=== PATIENT | male | born 1955 | race Caucasian/White ===

== ENCOUNTER 2020-04-12 11:43 | Inpatient (IN) | payer OTHER, SELFPAY ==
[2020-04-12] VITALS (8 sets, daily range): BP systolic 117–149; BP diastolic 65–77; PULSE 74–88; RESP 16–23; TEMP 36.6–37.8; O2SAT 87–97; BMI 27.1
--- NOTE | 2020-04-12 11:55 | XRR_ITS ---
PROCEDURE INFORMATION: Exam: XR Chest, 1 View Exam date and time: 04/12/2020 11:58 AM Age: 65 years old Clinical indication: Shortness of breath; Additional info: Nausea/diarrhea TECHNIQUE: Imaging protocol: XR of the chest Views: 1 view. COMPARISON: No relevant prior studies available. FINDINGS: Lungs: Bilateral patchy hazy interstitial pulmonary infiltrates are present. This could be due to a interstitial pneumonia possibly viral in nature. Pleural space: Unremarkable. No pleural effusion. No pneumothorax. Heart/Mediastinum: Unremarkable. No cardiomegaly. Bones/joints: Unremarkable. XR/XR chest 1V portable [id number] IMPRESSION: Bilateral hazy interstitial pulmonary infiltrates consistent with interstitial pneumonia possibly viral in nature.
--- NOTE | 2020-04-12 11:58 | ED_ITS ---
HPI - General Adult General: Chief complaint: Infusion Louie Stated complaint: GENERALIZED WEAKNESS/ N/V Time Seen by Provider: 04/12/20 11:45 Source: patient and EMS Mode of arrival: EMS Limitations: no limitations History of Present Illness: HPI narrative: Patient is a 65-year-old male with a history of diabetes mellitus who presents to the emergency department with na usea and vomiting and generalized weakness. The patient was recently admitted at a hospital in [facility] from 04/04/2020 to 04/10/2020 where he was managed as a case of DKA. While he was in the hospital he was also diagnosed with new onset A. fib. He was started on Eliquis but has not filled the prescription since he got home. Since to go home on the he has been feeling increasing weakness and now has nausea and diarrhea. No vomiting yet. He says he is too weak to even get out of bed. Because of the symptoms he was brought to the emergency department for evaluation MD complaint: generalized weakness Onset (ago): day(s) (3) Associated symptoms: Reports decreased appetite, malaise and nausea; Deny chest pain, confusion, cough, diaphoresis, dyspnea, fevers/chills, headache(s), rash, palpitations, seizures, short of breath, syncope, vomiting or weakness Review of Systems General: Reports: 10 or more systems reviewed and unremarkable except in HPI and below Const: Reports: fatigue and malaise; Denies: diaphoresis Eyes: Denies: change in vision or blurry vision ENMT: Denies: throat pain, enlarged tonsils, odynophagia, hoarseness, mouth pain or swelling of lips/tongue Card: Denies: chest pain, palpitations or syncope Resp: Denies: dyspnea GI: Reports: nausea and diarrhea; Denies: vomiting : Denies: flank pain, dysuria, urinary frequency, urinary urgency or urinary hesitancy Musc: Denies: neck pain, back pain or extremity swelling Skin/Breast: Denies: rash Neuro: Denies: headache(s) or confusion Endo: Denies: polyuria, polydipsia or tired all the time PFS ED PFSH: Medical History (Updated 04/12/20 @ 21:17 by Dakota Garces MD, [facility]) Atrial fibrillation Diabetes mellitus Hyperlipidemia Hypertension Surgical History (Updated 04/12/20 @ 15:52 by Deon Bruce MD) History of cholecystectomy Family History (Updated 04/12/20 @ 15:53 by Deon Bruce MD) Mother CAD (coronary artery disease) Father Old age Social History (Updated 04/12/20 @ 15:53 by Deon Bruce MD) Smoking and tobacco status: never smoked Alcohol intake: never Substance/Drug Use: never Physical Exam Const: COMMON NORMALS: no acute distress, average body habitus, patient oriented x3, no limitations, healthy appearing, alert and well nourished HENMT: COMMON NORMALS: normocephalic, atraumatic and moist oral mucous membranes HEAD & SCALP: normocephalic and atraumatic Neck/C-Spine: COMMON NORMALS: no meningeal signs and no JVD Resp: COMMON NORMALS: normal respiratory effort, No retractions, No use of accessory muscles, clear to auscultation bilaterally and percussion normal AUSCULTATION: clear to auscultation bilaterally PERCUSSION: percussion normal Cardio: COMMON NORMALS: no JVD, regular rate, regular rhythm, S1 normal heart sound present, S2 normal heart sound present, No gallops present (Cardio), No clicks present (Cardio), No murmurs present (Cardio), No rub (Cardio) and Peripheral pulses 2+ throughout RATE: regular rate RHYTHM: regular rhythm HEART SOUNDS: S1 normal heart sound present and S2 normal heart sound present PERIPHERAL PULSES: Peripheral pulses 2+ throughout GI: COMMON NORMALS: Normal to inspection, nondistended, normoactive bowel sounds present, Soft to palpation, non-tender, No hepatosplenomegaly present, no masses and no bruits PALPATION: Yes Soft to palpation and Yes No hepatosplenomegaly present : COMMON NORMALS: Yes no CVA tenderness BLADDER/KIDNEY EXAM: Yes no CVA tenderness Back/Pelvis: COMMON NORMALS: no CVA tenderness Extremity: COMMON NORMALS: normal to inspection, full ROM, capillary refill normal, no calf tenderness and no pedal edema Neuro: COMMON NORMALS: patient oriented x3 SENSORIUM/ORIENTATION: Yes alert MENINGEAL SIGNS: Yes no meningeal signs Skin: COMMON NORMALS: no rashes or lesions noted, no wounds, turgor normal, no jaundice, no petechiae and no mottling GENERAL SKIN EXAM: no rashes or lesions noted and turgor normal Course Reevaluation(s): Reevaluation #1: Discussed his lab and imaging findings with him. He is positive for COVID-19. Discussed monoclonal antibody infusion as he fits the criteria and he consented to receive the infusion. I had a conversation with a neighbor who is a nurse and she told me that the patient's is 75 years old, is pretty small and is unable to care for the patient at this time. The patient is extremely weak and fell while trying to go to the bathroom today. Because of these I do not think it is safe for the patient to be discharged home would like to admit him to the hospital. The patient voiced understanding and is in agreement with the plan Time: 14:50 Consultations: Consultation #1: Discussed the patient with Dr. Wellington, hospitalist. He kindly accepted the patient to his service. Time: 15:03 Vital Signs: Vital signs: Vital Signs Temperature 99.7 F H 04/12/20 19:57 Pulse Rate 88 04/12/20 19:57 Respiratory Rate 20 H 04/12/20 19:57 Blood Pressure 147/76 04/12/20 19:57 Pulse Oximetry 92 04/12/20 19:57 MDM - General Adult MDM Narrative: Medical decision making narrative: 65-year-old male who was recently discharged from a hospital in [place] after being admitted for DKA. Patient has been extremely weak for several days, is gotten to the point where he is unable to get out of bed. Evaluation here shows the patient is positive for COVID-19. He is not hypoxic and meets the criteria for monoclonal antibody infusion. The patient will be given an infusion of monoclonal antibody and admitted to the hospital for further evaluation and management. He was also noted to be hypokalemic and was given IV KCl in the ED. Medical Records: Attestation: I reviewed the patient's medical records. Lab Data: Attestation: I reviewed the patient's lab results. Labs: Lab Results 04/12/20 04/12/20 04/12/20 Range/Units 11:08 11:08 11:08 WBC 5.0 (4.0-10.0) 10^3/ uL RBC 4.18 (4.1-5.3) 10^6/u L Hgb 12.9 (11.7-16.6) g/dL Hct 38.1 L (42.0-52.0) % MCV 91.1 (80-94) fL MCH 30.9 (28.0-34.0) pg MCHC 33.9 (30.0-36.0) g/dL RDW 12.4 (12.1-15.1) % Plt Count 196 (130-400) 10^3/c mm MPV 10.6 H (7.4-10.4) fL Neut % (Auto) 67.4 % Lymph % (Auto) 19.2 % Lamar % (Auto) 12.2 % Eos % (Auto) 0.0 % Baso % (Auto) 0.2 % Neut # (Auto) 3.38 (1.8-7.7) 10^3/u L Lymph # (Auto) 1.0 (0.8-4.8) 10^3/u L Lamar # (Auto) 0.6 (0.2-0.9) 10^3/u L Eos # (Auto) 0.0 (0.0-0.8) 10^3/u L Baso # (Auto) 0.0 (0.0-0.1) 10^3/u L Nucleated RBC % (a uto) 0 % Nucleated RBCs # 0.0 /100WBC PT 13.90 (12.1-14.9) SECO NDS INR 1.04 (0.8-1.2) Sodium 135 L (136-145) mmol/L Potassium 2.9 L (3.5-5.1) mmol/L Chloride 94 L (98-107) mmol/L Carbon Dioxide 29 (22-29) mmol/L Anion Gap 14.9 (5-19) BUN 10 (8-23) mg/dL Creatinine 0.7 (0.7-1.2) mg/dL GFR Calculation 113.5 (90-130) mL/min Glucose 174 H (65-115) mg/dL Calculated Osmolal ity 283 L (285-295) mOsm/k g Lactate (0.5-2.2) mmol/L Calcium 7.8 L (8.5-10.5) mg/dL Magnesium 1.9 (1.7-2.3) mg/dL Total Bilirubin 0.4 (0.15-1.2) mg/dL AST 32 (0-40) U/L ALT 17 (0-41) U/L Alkaline Phosphata se 49 (40-130) IU/L Creatine Kinase 141 (39-308) U/L Troponin T Baselin e (0-15) ng/L Troponin T 120 Min port gamble (0-15) ng/L Delta Troponin T (0-10) ABS# C-Reactive Protein 62.4 H (0.0-4.9) mg/L NT-Pro-B Natriuret Pep 193 H (0-125) pg/mL Total Protein 5.9 L (6.6-8.7) g/dL Albumin 2.8 L (3.5-5.2) g/dL Globulin 3.1 (1.3-4.6) g/dL Lipase 53 (13-60) U/L Procalcitonin 0.30 (0-0.5) ng/mL Urine Color (Yellow) Urine Appearance (CLEAR) Urine pH (5-7) Ur Specific Gravit y (1.005-1.030) Urine Protein (Negative) Urine Glucose (UA) (Normal) Urine Ketones (Negative) Urine Blood (Negative) Urine Nitrate (Negative) Urine Bilirubin (Negative) Urine Urobilinogen (Negative) mg/dL Ur Leukocyte Crystal ase (Negative) Urine RBC (0-2) /hpf Urine WBC (0-5) /hpf Ur Squamous Epith Cells (0-5) /hpf Amorphous Sediment Urine Bacteria (NONE) /hpf Coarse Granular Ca sts /lpf Urine Mucus /hpf Serum Ketones (Negative) SARS-CoV-2 Ag (Rap id) (Negative) 04/12/20 04/12/20 04/12/20 Range/Units 11:08 11:08 13:02 WBC (4.0-10.0) 10^3/ uL RBC (4.1-5.3) 10^6/u L Hgb (11.7-16.6) g/dL Hct (42.0-52.0) % MCV (80-94) fL MCH (28.0-34.0) pg MCHC (30.0-36.0) g/dL RDW (12.1-15.1) % Plt Count (130-400) 10^3/c mm MPV (7.4-10.4) fL Neut % (Auto) % Lymph % (Auto) % Lamar % (Auto) % Eos % (Auto) % Baso % (Auto) % Neut # (Auto) (1.8-7.7) 10^3/u L Lymph # (Auto) (0.8-4.8) 10^3/u L Lamar # (Auto) (0.2-0.9) 10^3/u L Eos # (Auto) (0.0-0.8) 10^3/u L Baso # (Auto) (0.0-0.1) 10^3/u L Nucleated RBC % (a uto) % Nucleated RBCs # /100WBC PT (12.1-14.9) SECO NDS INR (0.8-1.2) Sodium (136-145) mmol/L Potassium (3.5-5.1) mmol/L Chloride (98-107) mmol/L Carbon Dioxide (22-29) mmol/L Anion Gap (5-19) BUN (8-23) mg/dL Creatinine (0.7-1.2) mg/dL GFR Calculation (90-130) mL/min Glucose (65-115) mg/dL Calculated Osmolal ity (285-295) mOsm/k g Lactate 1.2 (0.5-2.2) mmol/L Calcium (8.5-10.5) mg/dL Magnesium (1.7-2.3) mg/dL Total Bilirubin (0.15-1.2) mg/dL AST (0-40) U/L ALT (0-41) U/L Alkaline Phosphata se (40-130) IU/L Creatine Kinase (39-308) U/L Troponin T Baselin e 30 H (0-15) ng/L Troponin T 120 Min port gamble (0-15) ng/L Delta Troponin T (0-10) ABS# C-Reactive Protein (0.0-4.9) mg/L NT-Pro-B Natriuret Pep (0-125) pg/mL Total Protein (6.6-8.7) g/dL Albumin (3.5-5.2) g/dL Globulin (1.3-4.6) g/dL Lipase (13-60) U/L Procalcitonin (0-0.5) ng/mL Urine Color (Yellow) Urine Appearance (CLEAR) Urine pH (5-7) Ur Specific Gravit y (1.005-1.030) Urine Protein (Negative) Urine Glucose (UA) (Normal) Urine Ketones (Negative) Urine Blood (Negative) Urine Nitrate (Negative) Urine Bilirubin (Negative) Urine Urobilinogen (Negative) mg/dL Ur Leukocyte Crystal ase (Negative) Urine RBC (0-2) /hpf Urine WBC (0-5) /hpf Ur Squamous Epith Cells (0-5) /hpf Amorphous Sediment Urine Bacteria (NONE) /hpf Coarse Granular Ca sts /lpf Urine Mucus /hpf Serum Ketones Positive H (Negative) SARS-CoV-2 Ag (Rap id) (Negative) 04/12/20 04/12/20 04/12/20 Range/Units 13:02 13:15 13:15 WBC (4.0-10.0) 10^3/ uL RBC (4.1-5.3) 10^6/u L Hgb (11.7-16.6) g/dL Hct (42.0-52.0) % MCV (80-94) fL MCH (28.0-34.0) pg MCHC (30.0-36.0) g/dL RDW (12.1-15.1) % Plt Count (130-400) 10^3/c mm MPV (7.4-10.4) fL Neut % (Auto) % Lymph % (Auto) % Lamar % (Auto) % Eos % (Auto) % Baso % (Auto) % Neut # (Auto) (1.8-7.7) 10^3/u L Lymph # (Auto) (0.8-4.8) 10^3/u L Lamar # (Auto) (0.2-0.9) 10^3/u L Eos # (Auto) (0.0-0.8) 10^3/u L Baso # (Auto) (0.0-0.1) 10^3/u L Nucleated RBC % (a uto) % Nucleated RBCs # /100WBC PT (12.1-14.9) SECO NDS INR (0.8-1.2) Sodium (136-145) mmol/L Potassium (3.5-5.1) mmol/L Chloride (98-107) mmol/L Carbon Dioxide (22-29) mmol/L Anion Gap (5-19) BUN (8-23) mg/dL Creatinine (0.7-1.2) mg/dL GFR Calculation (90-130) mL/min Glucose (65-115) mg/dL Calculated Osmolal ity (285-295) mOsm/k g Lactate (0.5-2.2) mmol/L Calcium (8.5-10.5) mg/dL Magnesium (1.7-2.3) mg/dL Total Bilirubin (0.15-1.2) mg/dL AST (0-40) U/L ALT (0-41) U/L Alkaline Phosphata se (40-130) IU/L Creatine Kinase (39-308) U/L Troponin T Baselin e (0-15) ng/L Troponin T 120 Min port gamble 27.01 H (0-15) ng/L Delta Troponin T -2.99 L (0-10) ABS# C-Reactive Protein (0.0-4.9) mg/L NT-Pro-B Natriuret Pep (0-125) pg/mL Total Protein (6.6-8.7) g/dL Albumin (3.5-5.2) g/dL Globulin (1.3-4.6) g/dL Lipase (13-60) U/L Procalcitonin (0-0.5) ng/mL Urine Color Yellow (Yellow) Urine Appearance Clear (CLEAR) Urine pH 5 (5-7) Ur Specific Gravit y 1.020 (1.005-1.030) Urine Protein 1+ H (Negative) Urine Glucose (UA) 2+ (Normal) Urine Ketones 2+ H (Negative) Urine Blood 2+ H (Negative) Urine Nitrate Negative (Negative) Urine Bilirubin Neg (Negative) Urine Urobilinogen Norm (Negative) mg/dL Ur Leukocyte Crystal ase Negative (Negative) Urine RBC 0-4 H (0-2) /hpf Urine WBC 5-10 H (0-5) /hpf Ur Squamous Epith Cells None (0-5) /hpf Amorphous Sediment Not Reportable Urine Bacteria 1+ H (NONE) /hpf Coarse Granular Ca sts 5-10 H /lpf Urine Mucus 1+ /hpf Serum Ketones (Negative) SARS-CoV-2 Ag (Rap id) Positive H (Negative) Imaging Data^: CXR: Radiologist's impression: [facility] [address] [place] [address] XRay Report Signed Patient: Dallin Agosto #: [id number] : 6Acct#:[id number] Age/Sex: 65 / MADM Date: 04/12/20 Loc: ERRoom/Bed: Attending Dr: Ordering Provider/Ordering MD: Dakota Garces MD, [facility] Date of Service: 04/12/20 Procedure(s): XR chest 1V portable [id number] Accession Number(s): [id number] Report Number: [id number] PROCEDURE INFORMATION: Exam: XR Chest, 1 View Exam date and time: 04/12/2020 11:58 AM Age: 65 years old Clinical indication: Shortness of breath; Additional info: Nausea/diarrhea TECHNIQUE: Imaging protocol: XR of the chest Views: 1 view. COMPARISON: No relevant prior studies available. FINDINGS: Lungs: Bilateral patchy hazy interstitial pulmonary infiltrates are present. This could be due to a interstitial pneumonia possibly viral in nature. Pleural space: Unremarkable. No pleural effusion. No pneumothorax. Heart/Mediastinum: Unremarkable. No cardiomegaly. Bones/joints: Unremarkable. XR/XR chest 1V portable [id number] IMPRESSION: Bilateral hazy interstitial pulmonary infiltrates consistent with interstitial pneumonia possibly viral in nature. Dictated By:William Boyer Signed By:Zohreh Boyer Date/Time:04/12/20 1301 DD/ 1300 EKG Data^: EKG 1: Attestation: I personally reviewed and interpreted this EKG as follows: EKG interpretation date: 04/12/20 EKG interpretation time: 12:48 Prior EKG tracings: not available for review Interpretation: Atrial fibrillation. Heart rate [address] Computer generated interpretation: Chest X-Ray 04/12/20 11:55 IMPRESSION: Bilateral hazy interstitial pulmonary infiltrates consistent with interstitial pneumonia possibly viral in nature. EKG 2: Attestation: I personally reviewed and interpreted this EKG as follows: EKG interpretation date: 04/12/20 EKG interpretation time: 14:22 Prior EKG tracings: available for review Interpretation: Atrial fibrillation. Heart rate [address] changes. Poor EKG Computer generated interpretation: Chest X-Ray 04/12/20 11:55 IMPRESSION: Bilateral hazy interstitial pulmonary infiltrates consistent with interstitial pneumonia possibly viral in nature. Discharge Plan Discharge Patient Disposition: Admitted As Inpatient Admit Provider: Deon Bruce Clinical Impression: COVID-19, Hypokalemia Atrial fibrillation Qualifiers: Atrial fibrillation type: unspecified Qualified Code(s): I48.91 - Unspecified atrial fibrillation Diabetes mellitus Qualifiers: Diabetes mellitus type: type 2 Diabetes mellitus [facility] insulin use: with ingot supervisor use Diabetes mellitus complication status: without complication Q ualified Code(s): E11.9 - Type 2 diabetes mellitus without complications Condition: Stable Coding Level of Care Code ED Paper Tube Cutter for Chg Fwd Exam Comprehensive
--- NOTE | 2020-04-12 12:00 | ECG_ITS ---
[facility] Test Date: 2020-04-12 Pat Name: Gustavo Agosto Department: Room: Gender: Male Hose Tender: : 1955 Requested By: Dakota Garces I Order Number: [id number] Mitzy MD: Nayana Phillips M.D. Measurements Intervals [place] Rate: 68 P: WA: QRS: -11 QRSD: 99 T: 5 QT: 395 QTc: 422 Interpretive Statements ATRIAL FIBRILLATION ABNORMAL RHYTHM ECG No previous ECG available for comparison Electronically Signed On 04-13-2020 9:17:36 ADVANCED MANUFACTURING TECHNICIAN by Nayana Phillips M.D. [id number]
[2020-04-12 12:06] LABS: Basophils % 0.2 %; Hematocrit 38.1 % (42.0-52.0); Hemoglobin 12.9 g/dL (11.7-16.6); Lymphocytes % 19.2 %; Mean Corpuscular HGB Conc 33.9 g/dL (30.0-36.0); Mean Corpuscular Hemoglobin 30.9 pg (28.0-34.0); Mean Corpuscular Volume 91.1 fL (80-94); Mean Platelet Volume 10.6 fL (7.4-10.4); Monocytes # 0.6 10^3/uL (0.2-0.9); Monocytes % 12.2 %; Neutrophils # 3.38 10^3/uL (1.8-7.7); Neutrophils % 67.4 %; Nucleated Red Blood Cells % 0 %; Platelet Count 196 10^3/cmm (130-400); Red Blood Count 4.18 10^6/uL (4.1-5.3); Red Cell Distribution Width 12.4 % (12.1-15.1)
[2020-04-12 12:14] LABS: INR 1.04 (0.8-1.2)
[2020-04-12 12:31] LABS: Ketone (Acetest) Serum Positive (Negative)
[2020-04-12 12:34] LABS: NT Pro B Type Natriuretic Pept 193 pg/mL (0-125)
[2020-04-12 12:46] LABS: Alanine Aminotransferase 17 U/L (0-41); Albumin Level 2.8 g/dL (3.5-5.2); Alkaline Phosphatase 49 IU/L (40-130); Anion Gap 14.9 (5-19); Aspartate Amino Transferase 32 U/L (0-40); Blood Urea Nitrogen 10 mg/dL (8-23); C Reactive Protein 62.4 mg/L (0.0-4.9); Calcium 7.8 mg/dL (8.5-10.5); Carbon Dioxide 29 mmol/L (22-29); Chloride 94 mmol/L (98-107); Creatine Phosphokinase 141 U/L (39-308); Globulin 3.1 g/dL (1.3-4.6); Glomerular Filtration Rate 113.5 mL/min (90-130); Glucose 174 mg/dL (65-115); Lipase 53 U/L (13-60); Magnesium 1.9 mg/dL (1.7-2.3); Osmolality Calculated 283 mOsm/kg (285-295); Sodium 135 mmol/L (136-145); Total Bilirubin 0.4 mg/dL (0.15-1.2); Total Protein 5.9 g/dL (6.6-8.7)
[2020-04-12 12:58] LABS: Slide Review Slide Review Perform
[2020-04-12 13:02] LABS: Potassium 2.9 mmol/L (3.5-5.1)
[2020-04-12 13:16] LABS: Troponin(5th) Baseline 30 ng/L (0-15)
[2020-04-12 13:41] LABS: Lactate (Lactic Acid level) 1.2 mmol/L (0.5-2.2)
[2020-04-12 13:43] LABS: Troponin 5 2HR 27.01 ng/L (0-15)
[2020-04-12 13:49] LABS: Troponin 5 2HR Delta -2.99 ABS# (0-10)
[2020-04-12 13:53] LABS: SARS Covid-2 Antigen Positive (Negative)
--- NOTE | 2020-04-12 14:00 | ECG_ITS ---
[facility] Test Date: 2020-04-12 Pat Name: Gustavo Agosto Department: Room: Gender: Male Social Economist: : 1955 Requested By: Dakota Garces I Order Number: [id number] Mitzy MD: Nayana Phillips M.D. Measurements Intervals [place] Rate: 73 P: -79 CO: 132 QRS: -4 QRSD: 94 T: -20 QT: 390 QTc: 432 Interpretive Statements Possible multifocal atrial rhythm with PVCs POSSIBLE INFERIOR MYOCARDIAL INFARCTION , PROBABLY OLD [30 ms Q WAVE IN II/aVF] ABNORMAL RHYTHM ECG Compared to ECG 04/12/2020 12:48:04 Ventricular premature complex(es) now present Myocardial infarct finding now present Atrial fibrillation no longer present Electronically Signed On 04-13-2020 20:29:27 ROLE PLAYER by Nayana Phillips M.D. [id number]
[2020-04-12 14:14] LABS: Add Urine Microscopic? YES; Bilirubin Urine Neg (Negative); Blood Urine 2+ (Negative); Glucose Urine UA 2+ (Normal); Ketones Urine 2+ (Negative); Leukocyte Esterase Urine Negative (Negative); Nitrate Urine Negative (Negative); Protein Urine 1+ (Negative); RBC Urine 0-4 /hpf (0-2); Urine Appearance Clear (CLEAR); Urine Color Yellow (Yellow); Urobilinogen Urine Norm (Negative); pH Urine 5 (5-7)
[2020-04-12 14:15] LABS: Add Urine Culture? No; Bacteria Urine 1+ /hpf; Mucus Urine 1+ /hpf
[2020-04-12] MEDS: sodium chloride 0.9% 1,000 ML 999 ML IV (14:28)
[2020-04-12] MEDS: potassium chloride premix 100 ML 50 MEQ IV (14:28)
--- NOTE | 2020-04-12 15:50 | P.HP_ITS ---
Providers/Chief Complaint Chief Complaint: GENERALIZED WEAKNESS/ N/V History of Present Illness Gustavo Agosto is a 65 year old male with a past medical history insulin-dependent type 2 diabetes mellitus, hypertension, hyperlipidemia, recent diagnosis of atrial fibrillation, recent admission in [facility] for diabetic ketoacidosis, had a 6-day ICU admission, discharged on the eighth, he tested negative for Covid on the eighth, patient got home, he was not feeling well, fatigue, malaise, nausea, vomiting, lightheadedness, dizziness, inability to ambulate due to generalized weakness. Patient denies shortness of breath, denies chest pain, patient did not require any oxygen, no history of COPD, history of asthma, no history of CAD, no history of strokes, no history of CHF, history of CKD. Review of Systems Const: Reports: chills and fatigue; Denies: fever(s) or malaise Eyes: Denies: change in vision or blurry vision ENMT: Denies: nasal congestion Card: Reports: pre-syncope; Denies: chest pain, palpitations or edema Resp: Denies: dyspnea, productive cough, non-productive cough or wheezing GI: Reports: nausea and vomiting; Denies: abdominal pain, hematemesis, diarrhea, constipation, hematochezia or melena : Denies: flank pain, difficulty urinating, dysuria or urinary frequency Musc: Denies: neck pain or back pain Skin/Breast: Denies: rash Neuro: Denies: headache(s), dizziness or vertigo Psych: Denies: anxiety or depression Endo: Denies: polyuria or polydipsia Medications/Allergies Home Medications Medication Instructions Recorded Confirmed Last Taken Type aspirin 325 mg PO DAILY@0900 04/12/20 04/12/20 04/11/20 History atorvastatin 10 mg PO DAILY@2200 04/12/20 04/12/20 04/11/20 History dextrose [Glucose Bits] See Rx Instructions .ROUTE .COMPLEX 04/12/20 04/12/20 Unknown History dulaglutide [Trulicity] See Rx Instructions .ROUTE .COMPLEX 04/12/20 04/12/20 Unknown History empagliflozin 25 mg PO DAILY@0900 04/12/20 04/12/20 04/11/20 History insulin aspart U-100 [Novolog 17 unit SUBCUT DAILY@0900 04/12/20 04/12/20 Unknown History Flexpen U-100 Insulin] insulin glargine [Lantus Solostar See Rx Instructions .ROUTE .COMPLEX 04/12/20 04/12/20 Unknown History U-100 Insulin] metformin 1,000 mg PO BID@0900,1800 04/12/20 04/12/20 04/11/20 History metoprolol tartrate 25 mg PO DAILY@0900 04/12/20 04/12/20 04/11/20 History Allergies Allergy/AdvReac Type Severity Reaction Status Date / Time procaine [From Novocain] Allergy ALGY-Hives Verified 04/12/20 11:54 PFSH Acute PFSH: Medical History (Updated 04/12/20 @ 15:55 by Deon Bruce MD) Atrial fibrillation Diabetes mellitus Hyperlipidemia Hypertension Surgical History (Updated 04/12/20 @ 15:52 by Deon Bruce MD) History of cholecystectomy Family History (Updated 04/12/20 @ 15:53 by Deon Bruce MD) Mother CAD (coronary artery disease) Father Old age Social History (Updated 04/12/20 @ 15:53 by Deon Bruce MD) Smoking and tobacco status: never smoked Alcohol intake: never Substance/Drug Use: never Vitals/I&O/Wt Last Vital Signs Temp 97.9 F 04/12/20 11:48 Pulse 77 04/12/20 14:45 Resp 21 H 04/12/20 14:45 BP 130/65 04/12/20 14:45 Pulse Ox 93 04/12/20 14:45 Weight last 48 hrs Weight 99.79 kg Physical Exam Const: COMMON NORMALS: no acute distress and patient oriented x3 GENERAL APPEARANCE: cooperative and comfortable HENMT: COMMON NORMALS: normocephalic HEAD & SCALP: normocephalic Eye: COMMON NORMALS: Equal, round and reactive pupils present and EOMs intact bilaterally GENERAL EYE: appearance normal, both eyes and all related structu res PUPIL: Yes Equal, round and reactive pupils present Neck/C-Spine: COMMON NORMALS: full ROM, no lymphadenopathy, no JVD and Thyroid normal THYROID: Thyroid normal Lymph: LYMPHATIC: no lymphadenopathy noted Resp: COMMON NORMALS: normal respiratory effort, No retractions, No use of accessory muscles and clear to auscultation bilaterally AUSCULTATION: clear to auscultation bilaterally Cardio: COMMON NORMALS: no JVD, regular rate, regular rhythm, S1 normal heart sound present, S2 normal heart sound present, No gallops present (Cardio), No clicks present (Cardio) and No murmurs present (Cardio) RATE: regular rate RHYTHM: regular rhythm HEART SOUNDS: S1 normal heart sound present and S2 normal heart sound present GI: COMMON NORMALS: Normal to inspection, nondistended, normoactive bowel sounds present, Soft to palpation, non-tender and No hepatosplenomegaly present PALPATION: Yes Soft to palpation and Yes No hepatosplenomegaly present Extremity: COMMON NORMALS: normal to inspection, full ROM and no pedal edema Neuro: COMMON NORMALS: patient oriented x3, CN's II-XII intact bilaterally, moves all extremities and no focal motor deficits Psych: COMMON NORMALS: mental status grossly normal, Normal thought process present and cooperative THOUGHT PROCESS: Normal thought process present Data : 04/12/20 11:08 04/12/20 11:08 A&P Assessment and plan (1) COVID-19: -Associate with fatigue, malaise, dehydration -No shortness of breath, no chest pain, no oxygen requirements -Receiving bam infusion -Continue IV hydration -Continue Rocephin for UTI Status: Acute (2) Hyperlipidemia: Continue statin Status: Acute (3) Hypertension: Continue metoprolol Status: Acute (4) Atrial fibrillation: Continue metoprolol, Eliquis Status: Acute (5) Diabetes mellitus: Insulin sliding scale 34 units of Lantus at night, switch to 10 units nightly for now as he has poor appetite Status: Acute (6) Hypokalemia: Will receive IV replacement Status: Acute Attestations Medical Necessity Statement*: Patient requires hospitalization, outpatient with observation, for COVID-19 infection, dehydration, hypokalemia, UTI Coding Level of Care Code Acute Network Systems Integrator for [facility] Diagnoses COVID-19 U07.1 Hyperlipidemia E78.5 Hypertension I10 Atrial fibrillation I48.91 Diabetes mellitus E11.9 Hypokalemia E87.6
[2020-04-12] MEDS: dextrose 5%-sod chloride 0.9% 1,000 ML 100 ML IV (18:10)
[2020-04-12] MEDS: famotidine 20 mg Tablet PO (18:10)
[2020-04-12] MEDS: insulin glargine 100 units/1 mL 15 UNIT SUBCUT (18:10)
[2020-04-12] MEDS: apixaban 5 mg Tablet PO (18:10)
[2020-04-12] MEDS: cefTRIAXone 1,000 MG in sodium chloride 0.9% (plus) 50 ML 100 MG IV (18:12)
[2020-04-12 18:33] LABS: Glucose Point of Care 180 mg/dL (70-110)
[2020-04-12 21:08] LABS: Glucose Point of Care 256 mg/dL (70-110)
[2020-04-12] MEDS: atorvastatin 40 mg Tablet 20 MG PO (21:31)
[2020-04-12] MEDS: ondansetron 2 mg/ML SDV 2 mL 4 MG IVP (21:43)
[2020-04-12 22:27] LABS: Troponin 5 6HR 44.69 ng/L (0-15)
[2020-04-12 22:33] LABS: Troponin 5 6HR Delta 14.69 ng/L (0-12)
[2020-04-13] VITALS (10 sets, daily range): BP systolic 104–124; BP diastolic 59–71; PULSE 64–90; RESP 17–24; TEMP 36.4–38.2; O2SAT 91–97
[2020-04-13] MEDS: dextrose 5%-sod chloride 0.9% 1,000 ML 100 ML IV ×2 (04:34→15:18)
[2020-04-13 06:51] LABS: Estmated Average Glucose 229; Hemoglobin A1C 9.6 % (4.0-6.0)
[2020-04-13 06:58] LABS: Thyroid Stimulating Hormone 0.93 uIU/mL (0.27-4.20)
[2020-04-13 07:13] LABS: Glucose Point of Care 197 mg/dL (70-110)
[2020-04-13] MEDS: famotidine 20 mg Tablet PO ×2 (08:32→17:51)
[2020-04-13] MEDS: apixaban 5 mg Tablet PO ×2 (08:32→17:51)
[2020-04-13] MEDS: aspirin 81 mg EC Tablet PO (08:32)
[2020-04-13] MEDS: metoprolol tartrate 25 mg Tablet PO (08:32)
--- NOTE | 2020-04-13 08:54 | USCV_ITS ---
Surendra Gustavo Age: 65 Gender: M : 1955 Exam Date: 04/13/2020 09:42 Ordering Phys: Deon Bruce MD Technologist: Rosa Oscar Exam Location: [facility] [place] Indication: Elevated troponin BP: 118 / 67 HR: 76 Rhythm: Sinus Technical Quality: Fair MEASUREMENTS (Male / Female) Normal Values 2D ECHO LV Diastolic Diameter PLAX 3.0 cm 4.2 - 5.9 / 3.9 - 5.3 cm LV Systolic Diameter PLAX 2.6 cm LV Chamber Size 3.7 cm IVS Diastolic Thickness 1.9 cm 0.6 - 1.0 / 0.6 - 0.9 cm IVS Systolic Thickness 2.0 cm LVPW Diastolic Thickness 1.2 cm 0.6 - 1.0 / 0.6 - 0.9 cm LVPW Systolic Thickness 1.6 cm RV Chamber Size 3.5 cm LVOT Diameter 2.1 cm LV Ejection Fraction 2D Teich 26.9 % LV Ejection Fraction MOD 2C 66.4 % LV Ejection Fraction 2C AL 65.5 % LA Diameter 3.0 cm LA Width 3.5 cm LA Height 5.1 cm RA Width 3.2 cm RA Height 4.4 cm Aorta at Sinotubular Diameter 2.8 cm M-MODE LV Diastolic Diameter MM 4.4 cm 4.2 - 5.9 / 3.9 - 5.3 cm LV Systolic Diameter MM 3.4 cm LV Ejection Fraction MM Teich 45.5 % IVS Diastolic Thickness MM 1.5 cm 0.6 - 1.0 / 0.6 - 0.9 cm IVS Systolic Thickness MM 1.7 cm LVPW Diastolic Thickness MM 1.4 cm 0.6 - 1.0 / 0.6 - 0.9 cm LVPW Systolic Thickness MM 1.6 cm Aortic Annulus Diameter 4.1 cm LA Ao Ratio MM 0.8 MV E Point Septal Separation 1.3 cm DOPPLER AV Peak Velocity 140.3 cm/s LVOT Peak Velocity 87.0 cm/s AV Area Cont Eq vti 2.4 cm squared AV Area Cont Eq pk 2.2 cm squared MV Area PHT 2.9 cm squared Mitral E to A Ratio 0.8 MV E' Velocity 30.5 cm/s Mitral E to MV E' Ratio 4.7 Mitral E to LV E' Lateral Ratio 4.1 Mitral E to LV E' Septal Ratio 5.5 TV Peak E Velocity 83.0 cm/s Right Atrial Pressure 3.0 mmHg PV Peak Velocity 77.0 cm/s RV Acceleration Time 0.1 s RV Ejection Time 0.3 s RV AcT/ET 0.4 FINDINGS Left Ventricle Normal left ventricular size and systolic function, EF 66 %. Mild left ventricular hypertrophy. No regional wall motion abnormalities. Right Ventricle The right ventricle is normal in size and function. Right Atrium The right atrium is normal in size. Left Atrium The left atrium is normal in size. Mitral Valve Thickened mitral valve. Aortic Valve Thickened aortic valve. Mild aortic valve regurgitation. Tricuspid Valve Trace to mild tricuspid valve regurgitation. Pulmonic Valve No gross abnormalities noted Pericardium Normal pericardium without effusion. Aorta Normal ascending aorta dimension. CONCLUSIONS Normal left ventricular size and systolic function, EF 66 %. Mild left ventricular hypertrophy. No regional wall motion abnormalities. Minimally thickened aortic and mitral valves. Mild aortic valve regurgitation. There is no pericardial effusion. There are no intracardiac masses. No previous study is available for comparison. Dr Nayana Phillips MD FAC (Electronically Signed) Final Date: 13 April 2020 13:29 S
[2020-04-13] MEDS: potassium chloride ER 20 mEq Tablet 40 MEQ PO (09:45)
[2020-04-13] MEDS: insulin glargine 100 units/1 mL 15 UNIT SUBCUT ×2 (09:45→22:29)
--- NOTE | 2020-04-13 10:44 | P.PN_ITS ---
Vitals/I&O/Wt Last Vital Signs Temp 97.8 F 04/13/20 08:00 Pulse 73 04/13/20 08:51 Resp 17 04/13/20 08:51 BP 118/67 04/13/20 08:00 Pulse Ox 93 04/13/20 08:51 04/12/20 04/13/20 04/13/20 22:59 06:59 14:59 Intake Total 1100 / 1100 1780 / 2880 120 / 120 Output Total 240 / 240 720 / 960 Balance 860 / 860 1060 / 1920 120 / 120 Weight last 48 hrs Weight 99.79 kg Physical Exam Const: COMMON NORMALS: no acute distress and patient oriented x3 HENMT: COMMON NORMALS: normocephalic HEAD & SCALP: normocephalic Neck/C-Spine: COMMON NORMALS: no JVD Resp: COMMON NORMALS: normal respiratory effort, No retractions, No use of accessory muscles and clear to auscultation bilaterally AUSCULTATION: clear to auscultation bilaterally Cardio: COMMON NORMALS: no JVD, regular rate, regular rhythm, S1 normal heart sound present and S2 normal heart sound present RATE: regular rate RHYTHM: regular rhythm HEART SOUNDS: S1 normal heart sound present and S2 normal heart sound present GI: COMMON NORMALS: Normal to inspection, nondistended, normoactive bowel sounds present, Soft to palpation, non-tender, No hepatosplenomegaly present, no masses and no bruits PALPATION: Yes Soft to palpation and Yes No hepatosplenomegaly present Extremity: COMMON NORMALS: capillary refill normal, no clubbing, cyanosis or edema, no calf tenderness and no pedal edema Neuro: COMMON NORMALS: patient oriented x3 Psych: COMMON NORMALS: mental status grossly normal Data : 04/12/20 11:08 04/12/20 11:08 A&P Assessment and plan (1) Pneumonia due to COVID-19 virus: -Bilateral hazy interstitial pulmonary infiltrates consistent with interstitial pneumonia possibly viral in nature -Not requiring 3 L of oxygen, not complaining of shortness of breath, no chest pain -Troponins are elevated, significant delta -We will obtain an ABG, CT angiogram of the chest -BNP, echo -If patient persistently remains hypoxic, will start him on remdesivir and Decadron -Hold off on antibiotic -Advair, albuterol -Vitamin C, zinc -flutter, IC -eliquis for dvt ppx -full code Status: Acute (2) COVID-19: -Associate with fatigue, malaise, dehydration -No shortness of breath, no chest pain, -Received bam infusion -hold IV hydration for now -Continue Rocephin for UTI Status: Acute (3) Hyperlipidemia: Continue statin Status: Acute (4) Hypertension: Continue metoprolol Status: Acute (5) Atrial fibrillation: Continue metoprolol, Eliquis Status: Acute Qualifiers: Atrial fibrillation type: unspecified Qualified Code(s): I48.91 - Unspecified atrial fibrillation (6) Diabetes mellitus: Insulin sliding scale switch to 15UBID Status: Acute Qualifiers: Diabetes mellitus complication status: without complication Diabetes mellitus tank terminal gauger insulin use: with care home use Diabetes mellitus type: type 2 Qualified Code(s): E11.9 - Type 2 diabetes mellitus without complications; Z79.4 - tank terminal gauger (current) use of insulin (7) Hypokalemia: Will receive IV replacement Status: Acute (8) UTI (urinary tract infection): on rocephin Status: Acute (9) NSTEMI (non-ST elevated myocardial infarction): -Baseline troponin 30, 6-hour 44.69, delta 14.69, BNP 193 -No complaints of chest pain, no shortness of breath, is requiring 3 L -On aspirin, statin, Eliquis, beta-fabio -No personal history of CAD -We will order cardiac echocardiogram -Possibly Covid related myocarditis? -Monitor for chest pain, telemetry monitoring Status: Acute Attestations Medical Necessity Statement*: Patient requires hospitalization, for COVID-19 p neumonia, NSTEMI, Coding Level of Care Code Acute Replenishment Specialist for [facility] Diagnoses Pneumonia due to COVID-19 virus U07.1; J12.89 COVID-19 U07.1 Hyperlipidemia E78.5 Hypertension I10 Atrial fibrillation I48.91 Atrial fibrillation type: unspecified Diabetes mellitus E11.9; Z79.4 Diabetes mellitus complication status: without complication Diabetes mellitus care home insulin use: with care home use Diabetes mellitus type: type 2 Hypokalemia E87.6 UTI (urinary tract infection) N39.0 NSTEMI (non-ST elevated myocardial infarction) I21.4
[2020-04-13 11:21] LABS: ABG PCO2 39.1 mmHg (35-45); Arterial Blood Gas Hematocrit 37.6 % (42-52); Base Excess ABG 7.1 mmol/L (-2.0-2.0); Blood Gas Allen Test Pos; Blood Gas Operator Identificat ED; Blood Gas Sample Site Radial, left; Blood Gas Sample Type Arterial; HCO3 ABG 30.8 mmol/L (22-26); Oxygen Device NC; PO2 ABG 86.2 mmHg (80.0-100.0)
[2020-04-13] MEDS: zinc gluconate 50 mg Tablet PO (11:39)
[2020-04-13] MEDS: dexamethasone 4 mg/mL INJ 6 MG IVP (11:39)
[2020-04-13 12:30] LABS: Glucose Point of Care 260 mg/dL (70-110)
[2020-04-13] MEDS: remdesivir 200 MG in sodium chloride 0.9% (100 ml) 100 ML 100 MG IV (12:53)
[2020-04-13 17:45] LABS: Glucose Point of Care 281 mg/dL (70-110)
[2020-04-13] MEDS: ascorbic acid 500 mg Tablet 1000 MG PO (17:51)
[2020-04-13] MEDS: cefTRIAXone 1,000 MG in sodium chloride 0.9% (plus) 50 ML 100 MG IV (17:51)
[2020-04-13 20:32] LABS: Glucose Point of Care 323 mg/dL (70-110)
[2020-04-13] MEDS: atorvastatin 40 mg Tablet 20 MG PO (22:27)
[2020-04-13 23:36] LABS: NT Pro B Type Natriuretic Pept 268 pg/mL (0-125)
[2020-04-14] VITALS (11 sets, daily range): BP systolic 121–138; BP diastolic 66–75; PULSE 54–79; RESP 16–19; TEMP 36.4–36.6; O2SAT 90–96
[2020-04-14] MEDS: dextrose 5%-sod chloride 0.9% 1,000 ML 100 ML IV ×2 (01:22→12:46)
[2020-04-14] MEDS: guaiFENesin 100 mg/5 mL UDC 10 mL 200 MG PO (04:39)
[2020-04-14 05:12] LABS: Basophils % 0.2 %; Hematocrit 36.6 % (42.0-52.0); Hemoglobin 12.1 g/dL (11.7-16.6); Lymphocytes # 0.9 10^3/uL (0.8-4.8); Lymphocytes % 17.2 %; Mean Corpuscular HGB Conc 33.1 g/dL (30.0-36.0); Mean Corpuscular Hemoglobin 30.7 pg (28.0-34.0); Mean Corpuscular Volume 92.9 fL (80-94); Mean Platelet Volume 10.2 fL (7.4-10.4); Monocytes # 0.6 10^3/uL (0.2-0.9); Monocytes % 11.4 %; Neutrophils # 3.51 10^3/uL (1.8-7.7); Neutrophils % 70.4 %; Nucleated Red Blood Cells % 0 %; Platelet Count 219 10^3/cmm (130-400); Red Blood Count 3.94 10^6/uL (4.1-5.3); Red Cell Distribution Width 12.4 % (12.1-15.1)
[2020-04-14 05:38] LABS: D Dimer 1.45 ug/mIFEU (0-0.59)
[2020-04-14 05:50] LABS: Slide Review Slide Review Perform
[2020-04-14 06:42] LABS: Glucose Point of Care 220 mg/dL (70-110)
[2020-04-14 06:43] LABS: Alanine Aminotransferase 16 U/L (0-41); Albumin Level 2.4 g/dL (3.5-5.2); Alkaline Phosphatase 51 IU/L (40-130); Anion Gap 12.1 (5-19); Aspartate Amino Transferase 25 U/L (0-40); Blood Urea Nitrogen 7 mg/dL (8-23); C Reactive Protein 59.2 mg/L (0.0-4.9); Calcium 7.7 mg/dL (8.5-10.5); Carbon Dioxide 28 mmol/L (22-29); Chloride 101 mmol/L (98-107); Globulin 3.2 g/dL (1.3-4.6); Glomerular Filtration Rate 167.4 mL/min (90-130); Glucose 208 mg/dL (65-115); Osmolality Calculated 290 mOsm/kg (285-295); Phosphorus 2.1 mg/dL (2.5-4.5); Potassium 3.1 mmol/L (3.5-5.1); Sodium 138 mmol/L (136-145); Total Bilirubin 0.4 mg/dL (0.15-1.2); Total Protein 5.6 g/dL (6.6-8.7)
--- NOTE | 2020-04-14 07:00 | XR_ITS ---
WS: [id number] PORTABLE CHEST HISTORY: sob COMPARISON: 04/12/2020 Moderate diffuse bilateral multilobar opacifications which are ill formed and defined. Mild progressi on since the prior study. No pleural effusion or pneumothorax. Cardiac size: Normal. Mediastinum/Aorta: Normal mediastinum. No osseous abnormality seen. XR/XR chest 1V portable [id number] IMPRESSION: Diffuse bilateral opacifications, consistent with pneumonia. No improvement.
[2020-04-14 07:15] LABS: Creatine Phosphokinase 61 U/L (39-308); NT Pro B Type Natriuretic Pept 231 pg/mL (0-125); Procalcitonin 0.16 ng/mL (0-0.5)
[2020-04-14] MEDS: ascorbic acid 500 mg Tablet 1000 MG PO ×2 (08:36→17:25)
[2020-04-14] MEDS: famotidine 20 mg Tablet PO ×2 (08:36→17:24)
[2020-04-14] MEDS: metoprolol tartrate 25 mg Tablet PO (08:36)
[2020-04-14] MEDS: zinc gluconate 50 mg Tablet PO (08:36)
[2020-04-14] MEDS: aspirin 81 mg EC Tablet PO (08:36)
[2020-04-14] MEDS: insulin glargine 100 units/1 mL 15 UNIT SUBCUT ×2 (08:37→22:00)
[2020-04-14] MEDS: apixaban 5 mg Tablet PO ×2 (08:37→17:25)
[2020-04-14] MEDS: iohexol 350 mg/mL 100 mL Btl IV (09:19)
[2020-04-14 10:39] LABS: Glucose Point of Care 312 mg/dL (70-110)
--- NOTE | 2020-04-14 10:45 | CT_ITS ---
WS: [id number] CT CHEST ANGIOGRAPHY WITH REFORMATS HISTORY: hypoxia, covid TECHNIQUE: Contiguous axial images are obtained through the chest during arterial injection of intrav enous contrast. Images are reconstructed to evaluate the pulmonary arteries. MIP imaging also reviewe d. All CT scans at [facility] use at least one of these dose optimization techniques: aut omated exposure control; mA and/or kV adjustment per patient size (includes targeted exams where dose is matched to clinical indication); or iterative reconstruction. CONTRAST: Omnipaque 350; 95 mL IV. DLP: 619.09 mGy.cm COMPARISON: None available. Adequate but limited opacification of the pulmonary arteries. No pulmonary emboli identified to the s egmental branches. Normal aorta. No pericardial effusion. Very small bilateral layering pleural effus ions. There is diffuse severe opacifications throughout all lobes. Slightly greater in the basal dist ribution. Subcarinal lymph node at 12 mm. Small hiatal hernia. Prior cholecystectomy. Mild hepatic steatosis. No adrenal mass. Mild increase in thoracic kyphosis. No osteoblastic or osteolytic bone disease. CT/CT angio chest PE protcl [id number] IMPRESSION: 1. No pulmonary embolism through the segmental branches. 2. Diffuse severe pulmonary opacifications consistent with history of Covid 19 diagnosis. 3. Small bilateral pleural effusions. 4. Prior cholecystectomy.
--- NOTE | 2020-04-14 11:10 | PM.PN ---
Subjective Subjective: Interval history: No acute event overnight.Patient SOB has significantly improved. He has remained afebrile.Currently saturating well on R.A. His other vitals and labs have been reviewed. Medications: Reviewed: Yes Vitals/I&O/Wt Last Vital Signs Temp 97.9 F 04/14/20 07:40 Pulse 64 04/14/20 10:22 Resp 18 04/14/20 10:22 BP 121/69 04/14/20 07:40 Pulse Ox 93 04/14/20 10:22 04/13/20 04/14/20 04/14/20 22:59 06:59 14:59 Intake Total 1800 / 3040 200 / 200 Output Total 1200 / 1200 Balance -1200 / 40 1800 / 1840 200 / 200 Weight last 48 hrs Weight 99.79 kg Physical Exam Const: COMMON NORMALS: patient oriented x3 HENMT: COMMON NORMALS: normocephalic and atraumatic HEAD & SCALP: normocephalic and atraumatic Eye: GENERAL EYE: appearance normal, both eyes and all related structures Chest: COMMONS NORMALS: normal inspection of the chest and normal palpation of entire chest wall CHEST: Yes Symmetrical chest wall rise Resp: COMMON NORMALS: normal respiratory effort, No retractions, No use of accessory muscles and clear to auscultation bilaterally EFFORT & INSPECTION: Yes symmetric chest movement AUSCULTATION: clear to auscultation bilaterally Cardio: COMMON NORMALS: regular rate, regular rhythm, S1 normal heart sound present, S2 normal heart sound present, No gallops present (Cardio), No murmurs present (Cardio), No rub (Cardio) and Peripheral pulses 2+ throughout RATE: regular rate RHYTHM: regular rhythm HEART SOUNDS: S1 normal heart sound present and S2 normal heart sound present PERIPHERAL PULSES: Peripheral pulses 2+ throughout GI: COMMON NORMALS: Normal to inspection, nondistended, normoactive bowel sounds present, Soft to palpation, non-tender, No hepatosplenomegaly present and no masses AUSCULTATION: Yes normoactive bowel sounds PALPATION: Yes Soft to palpation and Yes No hepatosplenomegaly present RECTAL EXAM: Yes deferred Extremity: COMMON NORMALS: no clubbing, cyanosis or edema and no pedal edema Neuro: COMMON NORMALS: patient oriented x3 Data : 04/14/20 05:00 04/14/20 05:00 A&P Assessment and plan (1) Pneumonia due to COVID-19 virus: -Bilateral hazy interstitial pulmonary infiltrates consistent with interstitial pneumonia possibly viral in nature -Initially on 3 Ls of oxygen,Currently saturating well on R.A -not complaining of shortness of breath, no chest pain -Troponins are elevated, significant delta - CT angiogram of the chest:No P,E -2D echo: Normal LVEF, NO RWMA, No effusion -On remdesivir -On Decadron -Cef -Advair, albuterol -Vitamin C, zinc -flutter, IC -eliquis Status: Acute (2) COVID-19: -Associate with fatigue, malaise, dehydration -No shortness of breath, no chest pain, -Received bam infusion -hold IV hydration for now -Continue Rocephin for UTI Status: Acute (3) Hyperlipidemia: Continue statin Status: Acute (4) Hypertension: Continue metoprolol Status: Acute (5) Atrial fibrillation: Continue metoprolol, Eliquis Status: Acute Qualifiers: Atrial fibrillation type: unspecified Qualified Code(s): I48.91 - Unspecified atrial fibrillation (6) Diabetes mellitus: Insulin sliding scale switch to 15UBID Status: Acute Qualifiers: Diabetes mellitus complication status: without complication Diabetes mellitus extermination supervisor insulin use: with extermination supervisor use Diabetes mellitus type: type 2 Qualified Code(s): E11.9 - Type 2 diabetes mellitus without complications; Z79.4 - termite treater helper (current) use of insulin (7) Hypokalemia: Will receive IV replacement Status: Acute (8) UTI (urinary tract infection): on rocephin Status: Acute (9) NSTEMI (non-ST elevated myocardial infarction): -Baseline troponin 30, 6-hour 44.69, delta 14.69, BNP 193 -No complaints of chest pain, no shortness of breath, is requiring 3 L -On aspirin, statin, Eliquis, beta-fabio -No personal history of CAD -2D cardiac echocardiogram -Possibly Covid related myocarditis? -Monitor for chest pain, telemetry monitoring Status: Acute Attestations Medical Necessity Statement*: Patient needs to be in hospital for the management of COVID PNA and Hypoxic r/f 2/2 covid PNA. Coding Level of Care Code Acute Treer for [facility] Diagnoses Pneumonia due to COVID-19 virus U07.1; J12.89 COVID-19 U07.1 Hyperlipidemia E78.5 Hypertension I10 Atrial fibrillation I48.91 Atrial fibrillation type: unspecified Diabetes mellitus E11.9; Z79.4 Diabetes mellitus complication status: without complication Diabetes mellitus extermination supervisor insulin use: with extermination supervisor use Diabetes mellitus type: type 2 Hypokalemia E87.6 UTI (urinary tract infection) N39.0 NSTEMI (non-ST elevated myocardial infarction) I21.4
[2020-04-14] MEDS: dexamethasone 4 mg/mL INJ 6 MG IVP (11:28)
--- NOTE | 2020-04-14 12:30 | PC.OT ---
Patient pleasantly but adamantly refuses OT services stating he is able to do all ADL's but that exercises caused increased coughing and that this is defeating the purpose of therapy. D/C OT services
[2020-04-14 17:02] LABS: Glucose Point of Care 376 mg/dL (70-110)
[2020-04-14] MEDS: cefTRIAXone 1,000 MG in sodium chloride 0.9% (plus) 50 ML 100 MG IV (17:25)
[2020-04-14] MEDS: remdesivir 100 MG in sodium chloride 0.9% (100 ml) 100 ML IV (17:52)
[2020-04-14 21:34] LABS: Glucose Point of Care 318 mg/dL (70-110)
[2020-04-14] MEDS: atorvastatin 40 mg Tablet 20 MG PO (22:01)
[2020-04-15] VITALS (10 sets, daily range): BP systolic 123–140; BP diastolic 64–75; PULSE 45–74; RESP 17–20; TEMP 36.6–37; O2SAT 89–95
[2020-04-15] MEDS: dextrose 5%-sod chloride 0.9% 1,000 ML 100 ML IV ×3 (00:13→23:39)
[2020-04-15 05:09] LABS: Basophils % 0.1 %; Hematocrit 33.2 % (42.0-52.0); Hemoglobin 11.2 g/dL (11.7-16.6); Lymphocytes # 1.2 10^3/uL (0.8-4.8); Mean Corpuscular HGB Conc 33.7 g/dL (30.0-36.0); Mean Corpuscular Hemoglobin 30.5 pg (28.0-34.0); Mean Corpuscular Volume 90.5 fL (80-94); Mean Platelet Volume 10.5 fL (7.4-10.4); Monocytes # 0.7 10^3/uL (0.2-0.9); Monocytes % 9.9 %; Neutrophils # 5.38 10^3/uL (1.8-7.7); Neutrophils % 73.1 %; Nucleated Red Blood Cells % 0 %; Platelet Count 260 10^3/cmm (130-400); Red Blood Count 3.67 10^6/uL (4.1-5.3); Red Cell Distribution Width 12.1 % (12.1-15.1); White Blood Count 7.4 10^3/uL (4.0-10.0)
[2020-04-15 05:37] LABS: D Dimer 1.11 ug/mIFEU (0-0.59)
[2020-04-15 05:58] LABS: Alanine Aminotransferase 15 U/L (0-41); Albumin Level 2.3 g/dL (3.5-5.2); Alkaline Phosphatase 47 IU/L (40-130); Anion Gap 10.8 (5-19); Aspartate Amino Transferase 19 U/L (0-40); Blood Urea Nitrogen 10 mg/dL (8-23); C Reactive Protein 28.1 mg/L (0.0-4.9); Calcium 7.4 mg/dL (8.5-10.5); Carbon Dioxide 29 mmol/L (22-29); Chloride 100 mmol/L (98-107); Globulin 2.3 g/dL (1.3-4.6); Glomerular Filtration Rate 167.4 mL/min (90-130); Glucose 201 mg/dL (65-115); Magnesium 1.8 mg/dL (1.7-2.3); Osmolality Calculated 289 mOsm/kg (285-295); Phosphorus 2.5 mg/dL (2.5-4.5); Sodium 137 mmol/L (136-145); Total Bilirubin 0.3 mg/dL (0.15-1.2); Total Protein 4.6 g/dL (6.6-8.7)
[2020-04-15 06:02] LABS: Potassium 2.8 mmol/L (3.5-5.1)
[2020-04-15 06:10] LABS: NT Pro B Type Natriuretic Pept 433 pg/mL (0-125)
[2020-04-15 06:21] LABS: Creatine Phosphokinase 52 U/L (39-308)
[2020-04-15 07:12] LABS: Slide Review Slide Review Perform
[2020-04-15 07:47] LABS: Glucose Point of Care 213 mg/dL (70-110)
[2020-04-15] MEDS: ascorbic acid 500 mg Tablet 1000 MG PO ×2 (09:19→18:01)
[2020-04-15] MEDS: apixaban 5 mg Tablet PO ×2 (09:19→18:01)
[2020-04-15] MEDS: insulin glargine 100 units/1 mL 15 UNIT SUBCUT ×2 (09:19→22:04)
[2020-04-15] MEDS: metoprolol tartrate 25 mg Tablet PO (09:19)
[2020-04-15] MEDS: aspirin 81 mg EC Tablet PO (09:19)
[2020-04-15] MEDS: zinc gluconate 50 mg Tablet PO (09:19)
[2020-04-15] MEDS: famotidine 20 mg Tablet PO ×2 (09:19→18:01)
[2020-04-15 11:22] LABS: Glucose Point of Care 306 mg/dL (70-110)
[2020-04-15] MEDS: dexamethasone 4 mg/mL INJ 6 MG IVP (12:10)
[2020-04-15 17:23] LABS: Glucose Point of Care 189 mg/dL (70-110)
[2020-04-15] MEDS: remdesivir 100 MG in sodium chloride 0.9% (100 ml) 100 ML IV (18:02)
[2020-04-15] MEDS: cefTRIAXone 1,000 MG in sodium chloride 0.9% (plus) 50 ML 100 MG IV (18:02)
[2020-04-15 21:12] LABS: Glucose Point of Care 285 mg/dL (70-110)
--- NOTE | 2020-04-15 21:16 | P.PN_ITS ---
Subjective Subjective: Interval history: No acute event overnight.Patient is saturating well on R.A.Has been able to move in room. Has remained afebrile. His other vitals and labs have been reviewed. Medications: Reviewed: Yes Vitals/I&O/Wt Last Vital Signs Temp 97.9 F 04/15/20 19:46 Pulse 56 L 04/15/20 20:11 Resp 18 04/15/20 20:11 BP 140/75 04/15/20 19:46 Pulse Ox 94 04/15/20 20:11 04/15/20 04/15/20 04/15/20 06:59 14:59 22:59 Intake Total 250 / 3560 1430 / 1430 460 / 1890 Output Total 950 / 1325 500 / 500 500 / 1000 Balance -700 / 2235 930 / 930 -40 / 890 Physical Exam Const: COMMON NORMALS: patient oriented x3 HENMT: COMMON NORMALS: normocephalic, atraumatic, hearing grossly normal bilaterally and external ears normal HEAD & SCALP: normocephalic and atraumatic EXTERNAL EAR: Yes external ears normal Eye: COMMON NORMALS: no scleral icterus GENERAL EYE: appearance normal, both eyes and all related structures Chest: COMMONS NORMALS: normal inspection of the chest and normal palpation of entire chest wall CHEST: Yes Symmetrical chest wall rise Resp: COMMON NORMALS: normal respiratory effort, No retractions, No use of accessory muscles and clear to auscultation bilaterally EFFORT & INSPECTION: Yes symmetric chest movement AUSCULTATION: clear to auscultation bilaterally Cardio: COMMON NORMALS: regular rate, regular rhythm, S1 normal heart sound present, S2 normal heart sound present, No gallops present (Cardio), No murmurs present (Cardio), No rub (Cardio) and Peripheral pulses 2+ throughout RATE: regular rate RHYTHM: regular rhythm HEART SOUNDS: S1 normal heart sound present and S2 normal heart sound present PERIPHERAL PULSES: Peripheral pulses 2+ throughout GI: COMMON NORMALS: Normal to inspection, nondistended, normoactive bowel sounds present, Soft to palpation, non-tender, No hepatosplenomegaly present and no masses AUSCULTATION: Yes normoactive bowel sounds PALPATION: Yes Soft to palpation and Yes No hepatosplenomegaly present RECTAL EXAM: Yes deferred Extremity: COMMON NORMALS: no clubbing, cyanosis or edema and no pedal edema Neuro: COMMON NORMALS: patient oriented x3 Data : 04/15/20 05:00 04/15/20 05:00 A&P Assessment and plan (1) Pneumonia due to COVID-19 virus: -Bilateral hazy interstitial pulmonary infiltrates consistent with interstitial pneumonia possibly viral in nature -Initially on 3 Ls of oxygen,Currently saturating well on R.A -not complaining of shortness of breath, no chest pain -Troponins are elevated, significant delta - CT angiogram of the chest:No P,E -2D echo: Normal LVEF, NO RWMA, No effusion -On remdesivir ( 2/3 ) -On Decadron -Cef -Advair, albuterol -Vitamin C, zinc -flutter, IC -eliquis Status: Acute (2) COVID-19: -Associate with fatigue, malaise, dehydration -No shortness of breath, no chest pain, -Received bam infusion -hold IV hydration for now -Continue Rocephin for UTI Status: Acute (3) Hyperlipidemia: Continue statin Status: Acute (4) Hypertension: Continue metoprolol Status: Acute (5) Atrial fibrillation: Continue metoprolol, Eliquis Status: Acute Qualifiers: Atrial fibrillation type: unspecified Qualified Code(s): I48.91 - Unspecified atrial fibrillation (6) Diabetes mellitus: Insulin sliding scale switch to 15UBID Status: Acute Qualifiers: Diabetes mellitus complication status: without complication Diabetes mellitus long term acute care registered nurse insulin use: with [facility] use Diabetes mellitus type: type 2 Qualified Code(s): E11.9 - Type 2 diabetes mellitus without complications; Z79.4 - [facility] (current) use of insulin (7) Hypokalemia: Will receive IV replacement Status: Acute (8) UTI (urinary tract infection): on rocephin Status: Acute (9) NSTEMI (non-ST elevated myocardial infarction): -Baseline troponin 30, 6-hour 44.69, delta 14.69, BNP 193 -No complaints of chest pain, no shortness of breath, is requiring 3 L -On aspirin, statin, Eliquis, beta-fabio -No personal history of CAD -2D cardiac echocardiogram -Possibly Covid related myocarditis? -Monitor for chest pain, telemetry monitoring Status: Acute Attestations Medical Necessity Statement*: Patient needs to be in hospital for the management of COVID PNA Coding Level of Care Code Acute [employer] for [facility] Diagnoses Pneumonia due to COVID-19 virus U07.1; J12.89 COVID-19 U07.1 Hyperlipidemia E78.5 Hypertension I10 Atrial fibrillation I48.91 Atrial fibrillation type: unspecified Diabetes mellitus E11.9; Z79.4 Diabetes mellitus complication status: without complication Diabetes mellitus long term acute care registered nurse insulin use: with [facility] use Diabetes mellitus type: type 2 Hypokalemia E87.6 UTI (urinary tract infection) N39.0 NSTEMI (non-ST elevated myocardial infarction) I21.4
[2020-04-15] MEDS: atorvastatin 40 mg Tablet 20 MG PO (22:04)
[2020-04-16] VITALS (9 sets, daily range): BP systolic 122–140; BP diastolic 57–75; PULSE 53–66; RESP 16–20; TEMP 36.5–37.1; O2SAT 90–96
[2020-04-16 04:21] LABS: Basophils % 0.3 %; Hemoglobin 11.2 g/dL (11.7-16.6); Lymphocytes # 1.2 10^3/uL (0.8-4.8); Lymphocytes % 18.5 %; Mean Corpuscular HGB Conc 33.9 g/dL (30.0-36.0); Mean Corpuscular Hemoglobin 30.5 pg (28.0-34.0); Mean Corpuscular Volume 89.9 fL (80-94); Mean Platelet Volume 10.9 fL (7.4-10.4); Monocytes # 0.8 10^3/uL (0.2-0.9); Monocytes % 12.8 %; Neutrophils # 4.25 10^3/uL (1.8-7.7); Neutrophils % 67.1 %; Nucleated Red Blood Cells % 0 %; Platelet Count 307 10^3/cmm (130-400); Red Blood Count 3.67 10^6/uL (4.1-5.3); White Blood Count 6.3 10^3/uL (4.0-10.0)
[2020-04-16 04:34] LABS: D Dimer 1.14 ug/mIFEU (0-0.59)
[2020-04-16 04:57] LABS: Alanine Aminotransferase 17 U/L (0-41); Albumin Level 2.2 g/dL (3.5-5.2); Alkaline Phosphatase 50 IU/L (40-130); Anion Gap 13.5 (5-19); Aspartate Amino Transferase 21 U/L (0-40); Blood Urea Nitrogen 8 mg/dL (8-23); C Reactive Protein 17.3 mg/L (0.0-4.9); Calcium 7.3 mg/dL (8.5-10.5); Carbon Dioxide 29 mmol/L (22-29); Chloride 98 mmol/L (98-107); Globulin 2.9 g/dL (1.3-4.6); Glomerular Filtration Rate 167.4 mL/min (90-130); Glucose 175 mg/dL (65-115); Magnesium 1.7 mg/dL (1.7-2.3); Osmolality Calculated 289 mOsm/kg (285-295); Phosphorus 2.6 mg/dL (2.5-4.5); Sodium 138 mmol/L (136-145); Total Bilirubin 0.4 mg/dL (0.15-1.2); Total Protein 5.1 g/dL (6.6-8.7)
[2020-04-16 05:00] LABS: NT Pro B Type Natriuretic Pept 652 pg/mL (0-125); Procalcitonin 0.08 ng/mL (0-0.5)
[2020-04-16 05:10] LABS: Creatine Phosphokinase 54 U/L (39-308)
[2020-04-16 06:16] LABS: Potassium 2.5 mmol/L (3.5-5.1)
--- NOTE | 2020-04-16 06:36 | PC.NURSE ---
Received call from [place] in lab. Pt potassium 2.5 this AM. Hospitalist notified. Telephone order for potassium 80meq IVPB ordered. Order placed in computer.
[2020-04-16 06:56] LABS: Glucose Point of Care 175 mg/dL (70-110)
[2020-04-16] MEDS: ascorbic acid 500 mg Tablet 1000 MG PO (08:25)
[2020-04-16] MEDS: zinc gluconate 50 mg Tablet PO (08:25)
[2020-04-16] MEDS: aspirin 81 mg EC Tablet PO (08:25)
[2020-04-16] MEDS: apixaban 5 mg Tablet PO (08:25)
[2020-04-16] MEDS: famotidine 20 mg Tablet PO (08:25)
[2020-04-16] MEDS: metoprolol tartrate 25 mg Tablet PO (08:25)
[2020-04-16] MEDS: potassium chloride premix 100 ML 25 MEQ IV (08:26)
[2020-04-16] MEDS: insulin glargine 100 units/1 mL 15 UNIT SUBCUT (08:29)
--- NOTE | 2020-04-16 10:45 | PM.DCS ---
Discharge Providers Date of Admission: 04/13/20 19:07 Date of Discharge: April 16, 2020 Attending Provider at Admission: Deon Bruce MD Attending Provider at Discharge: Baljit Coombs MD Diagnoses at Discharge Discharge Diagnosis (1) Pneumonia due to COVID-19 virus: Status: Resolved (2) Hyperlipidemia: Status: Acute (3) Hypertension: Status: Chronic (4) Atrial fibrillation: Status: Chronic Qualifiers: Atrial fibrillation type: unspecified Qualified Code(s): I48.91 - Unspecified atrial fibrillation (5) Diabetes mellitus: Status: Chronic Qualifiers: Diabetes mellitus complication status: without complication Diabetes mellitus certified composites technician insulin use: with retirement use Diabetes mellitus type: type 2 Qualified Code(s): E11.9 - Type 2 diabetes mellitus without complications; Z79.4 - half-way (current) use of insulin (6) Hypokalemia: Status: Acute (7) UTI (urinary tract infection): Status: Resolved (8) NSTEMI (non-ST elevated myocardial infarction): Status: Chronic Reason for Visit Reason for Visit: GENERALIZED WEAKNESS/ N/V Hospital Course Hospital Course 65 year old male with a past medical history insulin-dependent type 2 diabetes mellitus, hypertension, hyperlipidemia, recent diagnosis of atrial fibrillation, recent admission in [facility] for diabetic ketoacidosis, had a 6-day ICU admission, discharged on the eighth, he tested negative for Covid on the eighth, patient got home, he was not feeling well, fatigue, malaise, nausea, vomiting, lightheadedness, dizziness, inability to ambulate due to generalized weakness. He was admitted for the management of COVID PNA.He was given remdesivir I.V for 3 days, as well as Decadron along with eliquis 5mg q12 h daily was kept on ceftriaxone as well as Vitamin C, zinc,advair inhaler and albuterol inhaler. He was also managed for elevated troponin likely TYPE II M.I V/S Viral Myocarditis.EKG: Atrial fibrilation with rate of 68. 2D Echo : Normal left ventricular size and systolic function, EF 66 %. Mild left ventricular hypertrophy. No regional wall motion abnormalities.Minimally thickened aortic and mitral valves. Mild aortic valve regurgitation.There is no pericardial effusion. CT angio chest PE protcl :No pulmonary embolism through the segmental branches.Diffuse severe pulmonary opacifications consistent with history of Covid 19 diagnosis. Small bilateral pleural effusions. He was evaluated for home oxygen requirement but he passed 6 mins walk test and was discharged without any home oxygen.He was not discharged on any Ac as he is very active at baseline and was educated regarding blood clots. He was also manged for hpokalemia and was given I.V pottasium 40 MEQ as well oral Pottasium 40 MEQ and was discharged on Oral potassium for 3 days. He was discharged in stable condition to follow with his PCP, Pulmonary Medicine, as well as social media campaign manager as outpatient. Physical Exam Const: COMMON NORMALS: patient oriented x3 HENMT: COMMON NORMALS: normocephalic, atraumatic, hearing grossly normal bilaterally and external ears normal HEAD & SCALP: normocephalic and atraumatic EXTERNAL EAR: Yes external ears normal Eye: COMMON NORMALS: no scleral icterus GENERAL EYE: appearance normal, both eyes and all related structures Chest: COMMONS NORMALS: normal inspection of the chest and normal palpation of entire chest wall CHEST: Yes Symmetrical chest wall rise Resp: COMMON NORMALS: normal respiratory effort, No retractions, No use of accessory muscles and clear to auscultation bilaterally EFFORT & INSPECTION: Yes symmetric chest movement AUSCULTATION: clear to auscultation bilaterally Cardio: COMMON NORMALS: regular rate, regular rhythm, S1 normal heart sound present, S2 normal heart sound present, No gallops present (Cardio), No murmurs present (Cardio), No rub (Cardio) and Peripheral pulses 2+ throughout RATE: regular rate RHYTHM: regular rhythm HEART SOUNDS: S1 normal heart sound present and S2 normal heart sound present PERIPHERAL PULSES: Peripheral pulses 2+ throughout GI: COMMON NORMALS: Normal to inspection, nondistended, normoactive bowel sounds present, Soft to palpation, non-tender, No hepatosplenomegaly present and no masses AUSCULTATION: Yes normoactive bowel sounds PALPATION: Yes Soft to palpation and Yes No hepatosplenomegaly present RECTAL EXAM: Yes deferred Extremity: COMMON NORMALS: no clubbing, cyanosis or edema and no pedal edema Neuro: COMMON NORMALS: patient oriented x3 Discharge Data Data Completed and Pending: Completed Studies During Hospitalization Category Date Time Status CT angio chest PE protcl [id number] Rout ine Cat Scan 04/14/20 10:45 Completed XR chest 1V misbah ble [id number] Routine Exams 04/14/20 07:00 Completed XR chest 1V misbah ble [id number] Urgent Exams 04/12/20 11:55 Completed CV echo complete* [id number] Routine Ultrasound 04/13/20 08:54 Completed Pending at discharge Category Date Time Status Miscellaneous Sarah t Routine Lab 04/15/20 14:25 Received Labs from last 24 hours 04/16/20 04/16/20 04/16/20 06:51 03:09 03:09 WBC RBC Hgb Hct MCV MCH MCHC RDW Plt Count MPV Neut % (Auto) Lymph % (Auto) [place] % (Auto) Eos % (Auto) Baso % (Auto) Neut # (Auto) Lymph # (Auto) [place] # (Auto) Eos # (Auto) Baso # (Auto) Nucleated RBC % (a uto) Nucleated RBCs # D-Dimer 1.14 H Sodium Potassium Chloride Carbon Dioxide Anion Gap BUN Creatinine GFR Calculation Glucose POC Glucose 175 H Calculated Osmolal ity Calcium Phosphorus Magnesium Total Bilirubin AST ALT Alkaline Phosphata se Creatine Kinase 54 C-Reactive Protein NT-Pro-B Natriuret Pep 652 H Total Protein Albumin Globulin [facility]/20 04/16/20 04/15/20 03:09 03:09 20:59 WBC 6.3 RBC 3.67 L Hgb 11.2 L Hct 33.0 L MCV 89.9 MCH 30.5 MCHC 33.9 RDW 12.0 L Plt Count 307 MPV 10.9 H Neut % (Auto) 67.1 Lymph % (Auto) 18.5 [place] % (Auto) 12.8 Eos % (Auto) 0.0 Baso % (Auto) 0.3 Neut # (Auto) 4.25 Lymph # (Auto) 1.2 [place] # (Auto) 0.8 Eos # (Auto) 0.0 Baso # (Auto) 0.0 Nucleated RBC % (a uto) 0 Nucleated RBCs # 0.0 D-Dimer Sodium 138 Potassium 2.5 L* Chloride 98 Carbon Dioxide 29 Anion Gap 13.5 BUN 8 Creatinine 0.5 L GFR Calculation 167.4 H Glucose 175 H POC Glucose 285 H Calculated Osmolal ity 289 Calcium 7.3 L Phosphorus 2.6 Magnesium 1.7 Total Bilirubin 0.4 AST 21 ALT 17 Alkaline Phosphata se 50 Creatine Kinase C-Reactive Protein 17.3 H NT-Pro-B Natriuret Pep Total Protein 5.1 L Albumin 2.2 L Globulin 2.9 Procalcitonin Misc Test Referenc e 04/15/20 04/15/20 04/15/20 17:19 14:25 11:17 WBC RBC Hgb Hct MCV MCH MCHC RDW Plt Count MPV Neut % (Auto) Lymph % (Auto) [place] % (Auto) Eos % (Auto) Baso % (Auto) Neut # (Auto) Lymph # (Auto) [place] # (Auto) Eos # (Auto) Baso # (Auto) Nucleated RBC % (a uto) Nucleated RBCs # D-Dimer Sodium Potassium Chloride Carbon Dioxide Anion Gap BUN Creatinine GFR Calculation Glucose POC Glucose 189 H 306 H Calculated Osmolal ity Calcium Phosphorus Magnesium Total Bilirubin AST ALT Alkaline Phosphata se Creatine Kinase C-Reactive Protein NT-Pro-B Natriuret Pep Total Protein Albumin Globulin Procalcitonin Misc Test Referenc e Pending Vitals: Last Vital Signs Temp 98.8 F 04/16/20 07:00 Pulse 61 04/16/20 09:18 Resp 16 04/16/20 09:17 BP 122/57 04/16/20 07:00 Pulse Ox 95 04/16/20 09:17 Discharge Plan Discharge Patient Disposition: Home Condition: Stable Prescriptions: New Medrol (Edward) 4 mg tablets,dose pack See Rx Instructions .ROUTE .COMPLEX Qty: 21 RF: 0 budesonide 90 mcg/actuation aerosol powdr breath activated 1 inh inhalation BID Qty: 1 RF: 0 Klor-Con 20 mEq packet 20 meq PO DAILY Qty: 3 RF: 0 Continued atorvastatin 10 mg Tablet 10 mg PO DAILY@2200 RF: 0 aspirin 325 mg Tablet 325 mg PO DAILY@0900 RF: 0 metformin 1,000 mg Tablet 1,000 mg PO BID@0900,1800 RF: 0 Novolog Flexpen U-100 Insulin 100 unit/mL (3 mL) Insulin Pen 17 unit SUBCUT DAILY@0900 RF: 0 metoprolol tartrate 25 mg Tablet 25 mg PO DAILY@0900 RF: 0 Lantus Solostar U-100 Insulin 100 unit/mL (3 mL) Insulin Pen See Rx Instructions .ROUTE .COMPLEX RF: 0 Glucose Bits 1 gram Tablet,Chewable See Rx Instructions .ROUTE .COMPLEX RF: 0 empagliflozin 25 mg Tablet 25 mg PO DAILY@0900 RF: 0 Trulicity 1.5 mg/0.5 mL Pen Injector See Rx Instructions .ROUTE .COMPLEX RF: 0 Discharge Orders: Discharge Order (Routine); Ordered 04/16/20 Ordered By: Baljit Coombs Discharge Diet: Diabetic Discharge Activity: Resume usual activity Patient Instructions: Potassium Chloride (By mouth), Methylprednisolone (By mouth), Budesonide (By breathing), Myocardial Infarction (DC), Viral Pneumonia (DC), Urinary Tract Infection in Children (DC), Urinary Tract Infection in Men (DC) Activity Restrictions/Additional Instructions: Tracie has been advised to follow up with his PCP, Pulomonolist as well as social media campaign manager as outpatient. Discharge Attestations Time Spent in Discharge Care*: less than 30 min Specific Discharge Activities: educating patient, educating and/or supporting family/caregiver, discussing with shoe caser/social workers/dc planners, documenting/other paperwork and evaluating patient/reviewing data Status at Discharge: Cognitive status at discharge: cognitively intact, Behavioral status at discharge: cooperative, Functional status at discharge: independent ambulation Overall status at discharge: patient is back to baseline Quality Metrics Clinical Quality Measures During this hospital stay, did patient experience: None Coding Level of Care Code Acute Fruit Bar Maker for g Fwd Diagnoses Pneumonia due to COVID-19 virus U07.1; J12.89 Hyperlipidemia E78.5 Hypertension I10 Atrial fibrillation I48.91 Atrial fibrillation type: unspecified Diabetes mellitus E11.9; Z79.4 Diabetes mellitus complication status: without complication Diabetes mellitus certified composites technician insulin use: with retirement use Diabetes mellitus type: type 2 Hypokalemia E87.6 UTI (urinary tract infection) N39.0 NSTEMI (non-ST elevated myocardial infarction) I21.4
[2020-04-16] MEDS: potassium chloride oral liq 20 mEq/15 mL UDC 40 MEQ PO (10:55)
[2020-04-16] MEDS: dexamethasone 4 mg/mL INJ 6 MG IVP (12:06)
[2020-04-19 06:41] LABS: Glucose Point of Care 252 mg/dL (70-110)
== END 2020-04-16 14:00 | disposition home or self-care (01) | DRG 177 ==
LOC: ER 13:17 → MEDSURG 21:17 → MS 2A 04-15 17:49
PROVIDERS: Admitting Provider Family Medicine; Emergency Provider Family Medicine; Visit Provider Internal Medicine
DX: U07.1 COVID-19 (principal); J12.82 Pneumonia due to coronavirus disease 2019; I21.A1 Myocardial infarction type 2; I40.0 Infective myocarditis; J96.91 Respiratory failure, unspecified with hypoxia; N39.0 Urinary tract infection, site not specified; E11.9 Type 2 diabetes mellitus without complications; I10 Essential (primary) hypertension; E78.5 Hyperlipidemia, unspecified; I48.91 Unspecified atrial fibrillation; E86.0 Dehydration; E87.6 Hypokalemia; Z79.4 Long term (current) use of insulin
CPT/HCPCS: 12345; 36415; 36416; 36600; 71045; 71275; 80053; 81001; 82009; 82550; 82803; 82962; 83036; 83605; 83690; 83735; 83880; 84100; 84145; 84443; 84484; 85025; 85378; 85610; 86140; 87046; 87426; 93005; 93306; 94640; 94664; 96372; 97110; 97116; 97163; 97165; 97530; 99282; G0378; J0696; J1100; J1815 ×2; J2405; J3480; J3535; J7030; J7050; Q9967

== ENCOUNTER → 2021-06-24 16:41 | Outpatient (BNVA) | payer MEDICARE, OTHER, SELFPAY | PROVIDERS: PCP Internal Medicine; Visit Provider Internal Medicine | DX: E11.9 Type 2 diabetes mellitus without complications (principal); Z79.4 Long term (current) use of insulin | CPT/HCPCS: 80053; 80061; 83036; 84443 ==

== ENCOUNTER 2022-10-27 12:44 | Inpatient (IN) | payer MEDICARE, OTHER, SELFPAY ==
[2022-10-27] VITALS (19 sets, daily range): BP systolic 112–152; BP diastolic 59–93; PULSE 93–139; RESP 16–28; TEMP 36.6–36.8; O2SAT 92–99; BMI 34.9
--- NOTE | 2022-10-27 12:48 | ED_ITS ---
HPI - Nausea/Vomiting/Diarrhea General: Chief complaint: Nausea/Vomiting/Diarrhea Stated complaint: n/v low blood sugar Time Seen by Provider: 10/27/22 12:48 History of Present Illness: Mr. Agosto is a 67-year-old gentleman with insulin-dependent diabetes presented the emergency department for generalized illness. Perhaps bad about 1 week ago however started for significantly worse over the past 3 days. He has had recurrent episodes of nausea and vomiting associate with abdominal cramping. He was found on the floor by his this morning with dark vomit. Glucose was elevated. Onset (ago): day(s) Associated nausea: Yes Associated abdominal pain: No Associated symtoms: Reports fatigue, malaise, nausea, short of breath and weakness Review of Systems General: Reports: 10 or more systems reviewed and unremarkable except in HPI and below Const: Reports: fatigue and malaise GI: Reports: nausea PFSH ED PFSH: Medical History Atrial fibrillation Atrial fibrillation with RVR COVID-19 Diabetes mellitus DM type 2 (diabetes mellitus, type 2) Hyperlipidemia Hypertension Hypokalemia NSTEMI (non-ST elevated myocardial infarction) Pneumonia due to COVID-19 virus UTI (urinary tract infection) Surgical History History of cholecystectomy Family History Mother CAD (coronary artery disease) Father Old age Social History Smoking and tobacco status: former smoker Alcohol intake: never Substance/Drug Use: never Physical Exam Const: COMMON NORMALS: alert GENERAL APPEARANCE: cooperative, well developed and ill appearing HENMT: COMMON NORMALS: normocephalic and atraumatic HEAD & SCALP: normocephalic and atraumatic Eye: COMMON NORMALS: conjunctivae normal CONJUNCTIVA: Yes conjunctivae normal SCLERA: sclerae normal Neck/C-Spine: COMMON NORMALS: supple GENERAL: Yes trachea midline Resp: EFFORT & INSPECTION: Yes able to speak in complete sentences and Yes tachypneic Cardio: RATE: tachycardic RHYTHM: abnormal rhythm GI: COMMON NORMALS: Soft to palpation PALPATION: Yes Soft to palpation, Yes Tenderness to palpation present (GI), No Guarding due to palpation present (GI) and No Rigid due to palpation Extremity: GENERAL: Yes normal exam except as noted and No edema Neuro: COMMON NORMALS: moves all extremities SENSORIUM/ORIENTATION: Yes alert and No Orientation impaired Psych: COMMON NORMALS: mental status grossly normal and Normal thought process present THOUGHT PROCESS: Normal thought process present Course Vital Signs: Vital signs: Vital Signs Temperature 99.7 F H 10/29/22 04:00 Pulse Rate 91 10/29/22 14:15 Respiratory Rate 23 H 10/29/22 14:15 Blood Pressure 128/94 10/29/22 14:15 Pulse Oximetry 98 10/29/22 13:35 Oxygen Delivery Me thod Room Air 10/29/22 09:40 Oxygen Flow Rate 4 10/27/22 14:06 MDM - Nausea/Vomiting/Diarrhea Medical Decision Making 67-year-old gentleman presenting with generalized illness and hyperglycemia. Quite ill on initial exam. No meningismus and no evidence of focal neurologic deficits. EKG demonstrates atrial fibrillation with rapid ventricular response. Labs notable for leukocytosis and hemoconcentration. Metabolic panel consistent with diabetic ketoacidosis as confirmed by ABG. Negative range 2-hour delta troponin. Chest x-ray with no lobar consolidation or pneumothorax. No clear abnormality identified on CT imaging. Despite quality low clinical suspicion requiring additional or repeat studies at this time. During ED course patient treated with antiemetic, IV fluids and initiated on insulin drip. Despite atrial fibrillation with rapid ventricular response I am seeing improvement with IV fluids and blood pressure remained adequate. I believe that patient requires continued volume resuscitation in the emergency department prior to any initiation of rate control given metabolic derangement and therefore will defer to hospitalist service. The results of ED evaluation were discussed with the patient including plan for admission due to requirement for level of care not available if discharged to prevent significant worsening/deterioration. Patient agreeable with plan. Discussed with hospitalist service who was agreeable to admit patient. Medical Records I reviewed the patient's medical records. Lab Data I reviewed the patient's lab results. 10/29/22 04:10 10/29/22 04:10 Radiology Impressions Chest X-Ray 10/27/22 12:48 IMPRESSION: No acute findings. Abdomen/Pelvis CT 10/27/22 13:26 IMPRESSION: 1. Quality of this examination is significantly compromised by breathing motion artifact. 2. Small foci of free air or ischemic changes would easily be obscured. 3. No ascites identified. 4. Prior cholecystectomy. Laboratory Results WBC 24.1 10^3/uL (4.0-10.0) H 10/27/22 12:59 RBC 5.79 10^6/uL (4.1-5.3) H 10/27/22 12:59 Hgb 18.5 g/dL (11.7-16.6) H 10/27/22 12:59 Hct 57.0 % (42.0-52.0) H 10/27/22 12:59 MCV 98.4 fl (80-94) H 10/27/22 12:59 MCH 32.0 pg (28.0-34.0) 10/27/22 12:59 MCHC 32.5 g/dL (30.0-36.0) 10/27/22 12:59 RDW 12.8 % (12.1-15.1) 10/27/22 12:59 Plt Count 503 10^3/cmm (130-400) H 10/27/22 12:59 MPV 9.4 fL (7.4-10.4) 10/27/22 12:59 Neut % (Auto) 82.5 % 10/27/22 12:59 Lymph % (Auto) 7.3 % 10/27/22 12:59 [place] % (Auto) 8.0 % 10/27/22 12:59 Eos % (Auto) 0.0 % 10/27/22 12:59 Baso % (Auto) 0.3 % 10/27/22 12:59 Neut # (Auto) 19.87 10^3/uL (1.8-7.7) H 10/27/22 12:59 Lymph # (Auto) 1.8 10^3/uL (0.8-4.8) 10/27/22 12:59 [place] # (Auto) 1.9 10^3/uL (0.2-0.9) H 10/27/22 12:59 Eos # (Auto) 0.0 10^3/uL (0.0-0.8) 10/27/22 12:59 Baso # (Auto) 0.1 10^3/uL (0.0-0.1) 10/27/22 12:59 Nucleated RBC % (auto) 0 % 10/27/22 12:59 Nucleated RBCs # 0.0 /100WBC 10/27/22 12:59 PT 15.20 SECONDS (12.1-14.9) H 10/27/22 12:59 INR 1.16 (0.8-1.2) 10/27/22 12:59 APTT 27.0 SECONDS (23.9-36.7) 10/27/22 12:59 D-Dimer 0.97 ug/mIFEU (0-0.59) H 10/27/22 15:03 Specimen Type Arterial 10/27/22 12:51 Sample Site Radial, right 10/27/22 12:51 ABG pH 6.96 (7.35-7.45) L* 10/27/22 12:51 ABG pCO2 7.5 mmHg (35-45) L* 10/27/22 12:51 ABG pO2 131.0 mmHg (80.0-100.0) H 10/27/22 12:51 ABG HCO3 1.7 mmol/L (22-26) L 10/27/22 12:51 ABG O2 Saturation 98.9 10/27/22 12:51 ABG Base Excess -28.1 mmol/L (-2.0-2.0) L 10/27/22 12:51 [place] Test Pos 10/27/22 12:51 A-a O2 Gradient 0.7 mmHg (5-10) L 10/27/22 12:51 Hematocrit 57.6 % (42-52) H 10/27/22 12:51 Hgb O2 Saturation 97.5 % (95-100) 10/27/22 12:51 Carboxyhemoglobin 1.0 %THgb (0.4-20.1) 10/27/22 12:51 Methemoglobin 0.4 % (0.4-1.5) 10/27/22 12:51 Total Hemoglobin 18.8 g/dL (14-18) H 10/27/22 12:51 Sodium 141.0 mmol/L (131-143) 10/27/22 12:51 Potassium 5.3 mmol/L (3.5-5.0) H 10/27/22 12:51 Glucose 550.0 mg/dL (70-115) H 10/27/22 12:51 Ionized Calcium 1.3 mmol/L (1.1-1.4) 10/27/22 12:51 O2 Delivery Device Room air 10/27/22 12:51 FiO2 21.0 % 10/27/22 12:51 Manufacturing Engineering Technologist ID Willy 10/27/22 12:51 Sodium 137 mmol/L (136-145) 10/27/22 12:59 Potassium 5.9 mmol/L (3.5-5.1) H 10/27/22 12:59 Chloride 96 mmol/L (98-107) L 10/27/22 12:59 Carbon Dioxide 5 mmol/L (22-29) L* 10/27/22 12:59 Anion Gap 41.9 (5-19) H 10/27/22 12:59 BUN 26 mg/dL (8-23) H 10/27/22 12:59 Creatinine 1.8 mg/dL (0.7-1.2) H 10/27/22 12:59 GFR Calculation 37.9 mL/min (90-130) L 10/27/22 12:59 Glucose 573 mg/dL (65-115) H* 10/27/22 12:59 POC Glucose 500 mg/dL (70-110) H 10/27/22 15:04 Estimat Average Glucose 209 10/27/22 12:59 Hemoglobin A1c 8.9 % (4.0-6.0) H 10/27/22 12:59 Calculated Osmolality 315 mOsm/kg (285-295) H 10/27/22 12:59 Lactic Acid 5.1 mmol/L (0.5-2.2) H* 10/27/22 12:59 Calcium 10.4 mg/dL (8.5-10.5) 10/27/22 12:59 Magnesium 3.1 mg/dL (1.7-2.3) H 10/27/22 12:59 Total Bilirubin 0.2 mg/dL (0.15-1.2) 10/27/22 12:59 AST 9 U/L (0-40) 10/27/22 12:59 ALT 9 U/L (0-41) 10/27/22 12:59 Alkaline Phosphatase 86 U/L (40-130) 10/27/22 12:59 Troponin T Baseline 16 ng/L (0-15) H 10/27/22 12:59 Troponin T 120 Minute Cancelled 10/27/22 15:03 Delta Troponin T Cancelled 10/27/22 15:03 Total Protein 8.2 g/dL (6.6-8.7) 10/27/22 12:59 Albumin 5.1 g/dL (3.5-5.2) 10/27/22 12:59 Globulin 3.1 g/dL (1.3-4.6) 10/27/22 12:59 Triglycerides 151 mg/dL (0-150) H 10/27/22 12:59 Vitamin B12 699 pg/mL (232-1245) 10/27/22 12:59 TSH 1.83 uIU/mL (0.27-4.20) 10/27/22 12:59 Urine Color Straw (Yellow) 10/27/22 13:58 Urine Appearance Clear (CLEAR) 10/27/22 13:58 Urine pH 5 (5-7) 10/27/22 13:58 Ur Specific [place] 1.020 (1.005-1.030) 10/27/22 13:58 Urine Protein 1+ (Negative) H 10/27/22 13:58 Urine Glucose (UA) 4+ (Normal) H 10/27/22 13:58 Urine Ketones 3+ (Negative) H 10/27/22 13:58 Urine Blood 2+ (Negative) H 10/27/22 13:58 Urine Nitrate Negative (Negative) 10/27/22 13:58 Urine Bilirubin Neg (Negative) 10/27/22 13:58 Urine Urobilinogen Norm mg/dL (Negative) 10/27/22 13:58 Ur Leukocyte Esterase Negative (Negative) 10/27/22 13:58 Urine RBC 5-10 /hpf (0-2) H 10/27/22 13:58 Urine WBC 0-4 /hpf (0-5) H 10/27/22 13:58 Ur Squamous Epith Cells 0-4 /hpf (0-5) H 10/27/22 13:58 Amorphous Sediment Not Reportable 10/27/22 13:58 Urine Bacteria Trace /hpf (NONE) 10/27/22 13:58 Fine Granular Casts 0-4 /lpf H 10/27/22 13:58 Serum Ketones Positive (Negative) H 10/27/22 12:59 Critical Care Time Critical Care Time: Critical Care Time: Yes Total Critical Care Time: 55 Attestation: Due to a high probability of clinically significant, possibly life threatening deterioration, the patient required my highest level of attention and preparedness to intervene emergently and I personally spent this critical care time directly and personally managing the patient. This critical care time included obtaining a history; examining the patient; pulse oximetry; ordering and review of laboratory and imaging studies; arranging urgent treatment with development of a management plan; evaluation of patient's response to treatment; frequent reassessment; and, discussions with other providers as applicable. It was exclusive of separately billable procedures. Primary system involved is metabolic and cardiac Discharge Plan Discharge Patient Disposition: Admitted As Inpatient Admit Provider: Joseph Juarez Clinical Impression: DKA (diabetic ketoacidosis), DM type 2 (diabetes mellitus, type 2), Atrial fibrillation with RVR Condition: Stable Discharge Diet: Diabetic Discharge Activity: Increase activity as tolerated Coding Level of Care Code ED Bailiff for [place]
--- NOTE | 2022-10-27 12:48 | XRR_ITS ---
PROCEDURE INFORMATION: Exam: XR Chest Exam date and time: 10/27/2022 1:00 PM Age: 67 years old Clinical indication: Shortness of breath; Additional info: Tachycardia, SOB TECHNIQUE: Imaging protocol: Radiologic exam of the chest. Views: 1 view. COMPARISON: CR XR chest 1V portable [id number] 04/14/2020 7:21 AM FINDINGS: Lungs: Unremarkable. No consolidation. Pleural spaces: Unremarkable. No pleural effusion. No pneumothorax. Heart/Mediastinum: Unremarkable. No cardiomegaly. Bones/joints: Unremarkable. XR/XR chest 1V portable [id number] IMPRESSION: No acute findings.
--- NOTE | 2022-10-27 12:49 | ECG_ITS ---
[facility] Test Date: 2022-10-27 Pat Name: Gustavo Agosto Department: Room: Gender: Male Sample Preparation Supervisor: : [id number] Requested By: Gabriel Delgado Order Number: [id number] Mitzy MD: Nayana Phillips M.D. Measurements Intervals [place] Rate: 138 P: 0 MD: 0 QRS: -23 QRSD: 83 T: 75 QT: 302 QTc: 458 Interpretive Statements ATRIAL FIBRILLATION WITH RAPID VENTRICULAR RESPONSE WITH ABERRANT CONDUCTION OR VENTRICULAR PREMATURE COMPLEXES BORDERLINE LEFT AXIS DEVIATION [QRS AXIS < -20] ABNORMAL RHYTHM ECG Compared to ECG 04/12/2020 14:21:46 Aberrant conduction of supraventricular beat(s) now present Myocardial infarct finding no longer present Electronically Signed On 10-27-2022 23:24:21 CDT by Nayana Phillips M.D. [email or web address]
[2022-10-27 13:02] LABS: Alveolar-Arterial Oxygen Gradi 0.7 mmHg (5-10); Arterial Blood Gas Hematocrit 57.6 % (42-52); Base Excess ABG -28.1 mmol/L (-2.0-2.0); Blood Gas Allen Test Pos; Blood Gas Operator Identificat WALCI; Blood Gas Sample Site Radial, right; Blood Gas Sample Type Arterial; HCO3 ABG 1.7 mmol/L (22-26); HGB O2 Sat 97.5 % (95-100); Ionized Calcium Level - ABG 1.3 mmol/L (1.1-1.4); Methemoglobin 0.4 % (0.4-1.5); Oxygen Device ROOM AIR; Oxygen Saturation ABG 98.9; Potassium Level - ABG 5.3 mmol/L (3.5-5.0); Total Hemoglobin 18.8 g/dL (14-18)
[2022-10-27 13:04] LABS: ABG PCO2 7.5 mmHg (35-45); ABG PH Result 6.96 (7.35-7.45)
[2022-10-27] MEDS: pantoprazole 40 mg SDV 80 MG IVP (13:04)
[2022-10-27] MEDS: sodium chloride 0.9% 1,000 ML 999 ML IV ×3 (13:05→15:26)
[2022-10-27] MEDS: ondansetron 2 mg/ML SDV 2 mL 4 MG IVP ×2 (13:05→21:11)
[2022-10-27 13:08] LABS: Glucose Point of Care 547 mg/dL (70-110)
[2022-10-27 13:22] LABS: Basophils # 0.1 10^3/uL (0.0-0.1); Basophils % 0.3 %; Hemoglobin 18.5 g/dL (11.7-16.6); Lymphocytes # 1.8 10^3/uL (0.8-4.8); Lymphocytes % 7.3 %; Mean Corpuscular HGB Conc 32.5 g/dL (30.0-36.0); Mean Corpuscular Volume 98.4 fl (80-94); Mean Platelet Volume 9.4 fL (7.4-10.4); Monocytes # 1.9 10^3/uL (0.2-0.9); Neutrophils # 19.87 10^3/uL (1.8-7.7); Neutrophils % 82.5 %; Nucleated Red Blood Cells % 0 %; Platelet Count 503 10^3/cmm (130-400); Red Blood Count 5.79 10^6/uL (4.1-5.3); Red Cell Distribution Width 12.8 % (12.1-15.1); White Blood Count 24.1 10^3/uL (4.0-10.0)
--- NOTE | 2022-10-27 13:26 | CT_ITS ---
WS: [id number] CT ABDOMEN AND PELVIS NONCONTRAST HISTORY: abd pain, n/v TECHNIQUE: Imaging performed through the abdomen and pelvis. Coronal and sagittal reformats are submi tted. All CT scans at [facility] use at least one of these dose optimization techniques: auto mated exposure control; mA and/or kV adjustment per patient size (includes targeted exams where dose is matched to clinical indication); or iterative reconstruction. DLP: 826.11 mGy.cm COMPARISON: None available. Quality of this examination is significantly compromised by breathing artifact. Lower thorax: Lung bases are clear. Visualized heart is normal. Small hiatal hernia. Liver: Limited evaluation. Significant breathing motion artifact. Gallbladder: Prior cholecystectomy. Pancreas: Atrophied. Otherwise limited. Spleen: Normal. Adrenal glands: Normal. No mass. Right kidney: Perinephric stranding. No obstruction. Left kidney: Perinephric stranding. No obstruction. Aorta: Mild atherosclerosis abdominal aorta with no aneurysm. No free fluid, intraperitoneal air or significant lymphadenopathy. GI tract: Limited. No obstruction. Abdominal wall: Negative. No hernia. Pelvis: Osseous structures: Unremarkable. CT/CT abdomen pelvis wo con [id number] IMPRESSION: 1. Quality of this examination is significantly compromised by breathing motio n artifact. 2. Small foci of free air or ischemic changes would easily be obscured. 3. No ascites identified. 4. Prior cholecystectomy.
[2022-10-27 13:33] LABS: Ketone (Acetest) Serum Positive (Negative)
[2022-10-27 13:47] LABS: Alanine Aminotransferase 9 U/L (0-41); Albumin Level 5.1 g/dL (3.5-5.2); Alkaline Phosphatase 86 U/L (40-130); Anion Gap 41.9 (5-19); Aspartate Amino Transferase 9 U/L (0-40); Blood Urea Nitrogen 26 mg/dL (8-23); Calcium 10.4 mg/dL (8.5-10.5); Chloride 96 mmol/L (98-107); Globulin 3.1 g/dL (1.3-4.6); Glomerular Filtration Rate 37.9 mL/min (90-130); Magnesium 3.1 mg/dL (1.7-2.3); Osmolality Calculated 315 mOsm/kg (285-295); Potassium 5.9 mmol/L (3.5-5.1); Sodium 137 mmol/L (136-145); Total Bilirubin 0.2 mg/dL (0.15-1.2); Total Protein 8.2 g/dL (6.6-8.7); Troponin(5th) Baseline 16 ng/L (0-15)
[2022-10-27 14:10] LABS: Carbon Dioxide 5 mmol/L (22-29); Creatinine Clr Calc Pharmacy 57.9566; Glucose 573 mg/dL (65-115); Lactic Sepsis W/Reflex 5.1 mmol/L (0.5-2.2)
[2022-10-27 14:25] LABS: Add Urine Microscopic? YES; Bilirubin Urine Neg (Negative); Blood Urine 2+ (Negative); Glucose Urine UA 4+ (Normal); Ketones Urine 3+ (Negative); Leukocyte Esterase Urine Negative (Negative); Nitrate Urine Negative (Negative); Protein Urine 1+ (Negative); Urine Appearance Clear (CLEAR); Urine Color Straw (Yellow); Urobilinogen Urine Norm (Negative); pH Urine 5 (5-7)
[2022-10-27 14:28] LABS: INR 1.16 (0.8-1.2)
[2022-10-27 14:31] LABS: Squamous Epithelial Cell Urine 0-4 /hpf (0-5); WBC Urine 0-4 /hpf (0-5)
[2022-10-27 14:32] LABS: Add Urine Culture? No; Bacteria Urine TRACE /hpf; Fine Granular Casts Urine 0-4 /lpf
--- NOTE | 2022-10-27 14:44 | PM.HP ---
Providers/Chief Complaint Primary Care Provider: Yasir Argueta MD Chief Complaint: n/v low blood sugar History of Present Illness Gustavo Agosto is a 67 year old mal Past medical history of a fib, not on Endocrine, the , other than aspirin, history of diabetes, presented with today's symptoms of nausea and vomiting. Patient is stating that he ran out of insulin, did not use properly yesterday. He noticed black vomitus content he was extremely dry, dehydrated, fatigued In the ER, he was diagnosed with a fib rvr, DKA Review of Systems Narrative: Endorsing fatigue lethargy Shortness of breath No chest pain Abdominal pain positive Nausea and vomiting positive Dehydration positive No skin rash No joint pain No dysuria Positive for anxiety Medications/Allergies Home Medications Medication Instructions Recorded Confirmed Last Taken Type dextrose 1 gram chewable tablet See Rx Instructions .Route .COMPLEX 04/12/20 10/27/22 Unknown History (Glucose Bits) cholecalciferol (vitamin D3) 125 125 mcg PO QAM 06/24/21 10/27/22 10/26/22 History mcg (5,000 unit) tablet metformin 1,000 mg tablet 1,000 mg PO BID@0900,1800 #180 tabs 06/24/21 10/27/22 10/26/22 Rx insulin syringe-needle U-100 0.3 #100 ea 06/25/21 10/27/22 Unknown Rx mL 30 gauge x 5/16 (Sure Comfort Insulin Syringe) pen needle, diabetic 29 gauge x #100 ea 06/25/21 10/27/22 Unknown Rx 1/2 (Comfort EZ Pen [place]) lancets 28 gauge (Easy Touch #100 ea 07/21/21 10/27/22 Unknown Rx Safety Lancets) metoprolol tartrate 25 mg tablet 25 mg PO BID #180 tabs 07/28/21 10/27/22 Unknown Rx aspirin 325 mg tablet 325 mg PO QAM 10/27/22 10/27/22 10/26/22 History atorvastatin 10 mg tablet 10 mg PO BEDTIME 10/27/22 10/27/22 Unknown History dulaglutide 1.5 mg/0.5 mL 1.5 mg SUBCUT Q7D 10/27/22 10/27/22 10/20/22 History subcutaneous pen injector (Trulicity) empagliflozin 25 mg tablet 25 mg PO QAM 10/27/22 10/27/2210/26/23 History (Jardiance) gabapentin 300 mg capsule 300 mg PO BEDTIME 10/27/22 10/27/22 10/26/22 History insulin glargine 100 unit/mL (3 30 unit SUBCUT QAM 10/27/22 10/27/22 10/26/22 History mL) subcutaneous pen (Lantus Solostar U-100 Insulin) lancets 28 gauge (FreeStyle 10/27/22 10/27/22 Unknown History Lancets) Allergies Allergy/AdvReac Type Severity Reaction Status Date / Time procaine [From Novocain] Allergy ALGY-Hives Verified 06/24/21 10:09 PFSH Acute PFSH: Medical History Atrial fibrillation COVID-19 Diabetes mellitus Hyperlipidemia Hypertension Hypokalemia NSTEMI (non-ST elevated myocardial infarction) Pneumonia due to COVID-19 virus UTI (urinary tract infection) Surgical History History of cholecystectomy Family History Mother CAD (coronary artery disease) Father Old age Social History Smoking and tobacco status: former smoker Alcohol intake: never Substance/Drug Use: never Vitals/I&O/Wt Last Vital Signs Temp 98.3 F 10/27/22 12:48 Pulse 139 H 10/27/22 14:06 Resp 16 10/27/22 14:06 BP 137/93 10/27/22 14:06 Pulse Ox 98 10/27/22 14:06 O2 Del Method Nasal Cannula 10/27/22 14:06 O2 Flow Rate 4 10/27/22 14:06 10/26/22 10/27/22 10/27/22 22:59 06:59 14:59 Intake Total 599.4 / 599.4 Balance 599.4 / 599.4 Weight last 48 hrs Weight 127.006 kg Physical Exam Narrative: Patient is awake and alert A-fib RVR GCS 15 nonfocal neuro exam Fatigue dermatology S1, S2 variable Hemodynamically stable with tachyarrhythmia was notified Clinically patient looks very dehydrated kussmual's breathing breathing on RA Data 10/28/22 03:38 10/28/22 11:13 Micro: Microbiology 10/27/22 12:59 Blood Culture - Preliminary Blood SPECIMEN COLLECTED 10/27/22 13:14 Blood Culture - Preliminary Blood SPECIMEN COLLECTED A&P Assessment and plan (1) DKA (diabetic ketoacidosis): (2) Atrial fibrillation with RVR: (3) Hypertension: Qualifiers: Hypertension type: primary hypertension Qualified Code(s): I10 - Essential (primary) hypertension (4) Hyperlipidemia: Qualifiers: Hyperlipidemia type: pure hypercholesterolemia Qualified Code(s): E78.00 - Pure hypercholesterolemia, unspecified (5) Metabolic acidosis: Plan Dka start Dka protocol start bicarb gtt npo [id number] check TG and HgA1c check troponin Leukocytosis without fever, lactic acidemia related to dehydration I would start antibiotics empirically He is afebrile Request blood cultures afib rvr start therapeutic lovenox dehdration started IV fluids uGIB monitor H&h protonix 40 mg Ivp bid full code Npo Attestations Medical Necessity Statement*: More than 2 midnights anticipated Coding Level of Care Code Critical Care >/= 30 minutes Critical care time (in minutes): 35 The high probability of a clinically significant, sudden or life threatening deterioration, as referenced in this documentation, required my full and direct attention, intervention and personal management. The critical care time shown is in addition to time spent performing any reported separately billable procedures and includes the following: [x] Data and vital sign review and interpretation [x] Patient assessment, examination and intervention [x] Medication orders and management [x] Patient/Family updates as able [x] Care Coordination and Documentation. Diagnoses DKA (diabetic ketoacidosis) E11.10 Atrial fibrillation with RVR I48.91 Hypertension I10 Hypertension type: primary hypertension Hyperlipidemia E78.00 Hyperlipidemia type: pure hypercholesterolemia Metabolic acidosis E87.20
[2022-10-27 15:06] LABS: Reflex Lactate Order REFLEX LACTIC ORDERD
[2022-10-27 15:07] LABS: Glucose Point of Care 500 mg/dL (70-110)
[2022-10-27] MEDS: insulin regular-human 250 UNIT in sodium chloride 0.9% 250 ML 9.5 UNIT IV (15:07)
--- NOTE | 2022-10-27 15:17 | PC.PHAR ---
pts verified pts medications-states she is unsure if the pt still takes atorvastatin 10mg daily ext shows last filled 10/15/22 90d/s and metoprolol tartrate 25mg bid ext shows last filled 10/15/22 90d/s-notes are made in the pharmacy comments
[2022-10-27] MEDS: sodium bicarbonate 150 MEQ in dextrose 5% 1,000 ML 125 MEQ IV (15:26)
[2022-10-27 15:29] LABS: D Dimer 0.97 ug/mIFEU (0-0.59)
[2022-10-27 15:44] LABS: Triglycerides 151 mg/dL (0-150)
[2022-10-27] MEDS: dilTIAZem 5 mg/mL SDV 5 mL 10 MG IVP ×2 (16:33→19:52)
[2022-10-27] MEDS: enoxaparin 100 mg/mL Syringe 90 MG SUBCUT (16:46)
[2022-10-27 16:48] LABS: Estmated Average Glucose 209; Hemoglobin A1C 8.9 % (4.0-6.0)
[2022-10-27 17:22] LABS: Glucose Point of Care 395 mg/dL (70-110)
--- NOTE | 2022-10-27 17:26 | ECG_ITS ---
[facility] Test Date: 2022-10-27 Pat Name: Gustavo Agosto Department: Room: [facility] Gender: Male Church Business Administrator: : 1955 Requested By: Gabriel Delgado Order Number: [id number] Mitzy MD: Nayana Phillips M.D. Measurements Intervals [place] Rate: 140 P: 0 IL: 0 QRS: 6 QRSD: 79 T: 28 QT: 331 QTc: 505 Interpretive Statements ATRIAL FIBRILLATION WITH RAPID VENTRICULAR RESPONSE LOW QRS VOLTAGE IN EXTREMITY LEADS [QRS DEFLECTION < 0.5 mV IN LIMB LEADS] NONSPECIFIC T-WAVE ABNORMALITY Baseline artifact. Defective EKG ABNORMAL RHYTHM ECG WARNING: DATA QUALITY MAY AFFECT INTERPRETATION INTERPRETATION BASED ON A DEFAULT AGE OF 40 YEARS Compared to ECG 10/27/2022 14:58:06 T-wave abnormality now present Ventricular premature complex(es) no longer present Aberrant conduction of supraventricular beat(s) no longer present Electronically Signed On 10-27-2022 23:37:20 CDT by Nayana Phillips M.D. [id number]
[2022-10-27 17:42] LABS: Lactate (Lactic Acid level) 3.1 mmol/L (0.5-2.2)
[2022-10-27 17:44] LABS: Glucose Point of Care 457 mg/dL (70-110)
[2022-10-27 17:53] LABS: Troponin 5 2HR 18.66 ng/L (0-15)
[2022-10-27 17:55] LABS: Troponin 5 2HR Delta 2.66 ABS# (0-10)
[2022-10-27 17:59] LABS: Thyroid Stimulating Hormone 1.83 uIU/mL (0.27-4.20); Vitamin B12 699 pg/mL (232-1245)
[2022-10-27 18:07] LABS: Blood Urea Nitrogen 27 mg/dL (8-23); Calcium 8.6 mg/dL (8.5-10.5); Chloride 107 mmol/L (98-107); Glomerular Filtration Rate 46.8 mL/min (90-130); Glucose 392 mg/dL (65-115); Osmolality Calculated 319 mOsm/kg (285-295); Sodium 144 mmol/L (136-145)
[2022-10-27 18:10] LABS: Creatinine Clr Calc Pharmacy 60.7214
[2022-10-27 18:15] LABS: Glucose Point of Care 286 mg/dL (70-110)
[2022-10-27 18:16] LABS: Anion Gap 37.8 (5-19); Potassium 4.8 mmol/L (3.5-5.1)
[2022-10-27 18:17] LABS: Carbon Dioxide 4 mmol/L (22-29)
--- NOTE | 2022-10-27 18:49 | ECG_ITS ---
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 Measurements Intervals [place] Rate: 138 P: 0 [place]: 0 QRS: -4 QRSD: 88 T: 50 QT: 341 QTc: 518 Interpretive Statements ATRIAL FIBRILLATION WITH RAPID VENTRICULAR RESPONSE WITH ABERRANT CONDUCTION OR VENTRICULAR PREMATURE COMPLEXES LOW QRS VOLTAGE IN EXTREMITY LEADS [QRS DEFLECTION < 0.5 mV IN LIMB LEADS] ABNORMAL RHYTHM ECG Compared to ECG 10/27/2022 13:03:53 Low QRS voltage now present Electronically Signed On 10-27-2022 23:34:03 CDT by Nayana Phillips M.D. [id number]
[2022-10-27 19:18] LABS: Glucose Point of Care 292 mg/dL (70-110)
[2022-10-27] MEDS: dilTIAZem 30 mg Tablet PO (19:51)
[2022-10-27] MEDS: sodium chlor 0.9% + KCl 40 mEq 40 MEQ/1,000 ML BAG 100 MEQ IV (20:02)
[2022-10-27 20:03] LABS: Troponin 5 6HR 25.74 ng/L (0-15)
[2022-10-27 20:08] LABS: Troponin 5 6HR Delta 9.74 ng/L (0-12)
[2022-10-27 20:09] LABS: Glucose Point of Care 192 mg/dL (70-110)
--- NOTE | 2022-10-27 20:12 | PC.NURSE ---
BG less than 250: Contacted Dr. Juarez for BG of 192. New order to change fluids to D5 NS w/ 40 KCL.
[2022-10-27] MEDS: dextrose 5%-ns + KCl 40 40 MEQ/1,000 ML BAG 125 MEQ IV (20:17)
[2022-10-27] MEDS: piperacillin-tazobactam 3.375 GM in sodium chloride 0.9% (plus) 50 ML IV (20:25)
[2022-10-27 21:11] LABS: Glucose Point of Care 174 mg/dL (70-110)
[2022-10-27 21:59] LABS: Blood Urea Nitrogen 24 mg/dL (8-23); Calcium 8.7 mg/dL (8.5-10.5); Chloride 108 mmol/L (98-107); Glomerular Filtration Rate 50.7 mL/min (90-130); Glucose 195 mg/dL (65-115); Magnesium 2.4 mg/dL (1.7-2.3); Osmolality Calculated 307 mOsm/kg (285-295); Phosphorus 2.3 mg/dL (2.5-4.5); Sodium 144 mmol/L (136-145)
[2022-10-27 22:01] LABS: Glucose Point of Care 168 mg/dL (70-110)
[2022-10-27 22:02] LABS: Carbon Dioxide 7 mmol/L (22-29)
--- NOTE | 2022-10-27 22:09 | PC.NURSE ---
BG 168: Contacted Dr. Christy @2078 for BG of 168 concerning Insulin protocol and BMP results. New order to keep insulin running @0.5 and increase D5, NS w/ 40 Potassium to 200ml/hr. Recheck BG in 1hr.
[2022-10-27 23:01] LABS: Glucose Point of Care 209 mg/dL (70-110)
[2022-10-28] VITALS (93 sets, daily range): BP systolic 94–130; BP diastolic 62–78; PULSE 86–128; RESP 14–26; TEMP 37.2–37.8; O2SAT 93–99
[2022-10-28 00:04] LABS: Glucose Point of Care 252 mg/dL (70-110)
[2022-10-28 01:02] LABS: Glucose Point of Care 238 mg/dL (70-110)
[2022-10-28] MEDS: dilTIAZem 30 mg Tablet PO ×4 (01:16→19:53)
[2022-10-28 01:32] LABS: Anion Gap 28.7 (5-19); Blood Urea Nitrogen 20 mg/dL (8-23); Calcium 8.1 mg/dL (8.5-10.5); Chloride 107 mmol/L (98-107); Glomerular Filtration Rate 46.8 mL/min (90-130); Glucose 326 mg/dL (65-115); Magnesium 2.2 mg/dL (1.7-2.3); Osmolality Calculated 305 mOsm/kg (285-295); Phosphorus 1.1 mg/dL (2.5-4.5); Potassium 4.7 mmol/L (3.5-5.1); Sodium 140 mmol/L (136-145)
[2022-10-28 01:35] LABS: Creatinine Clr Calc Pharmacy 60.7214
[2022-10-28 01:36] LABS: Carbon Dioxide 9 mmol/L (22-29)
--- NOTE | 2022-10-28 01:46 | PC.NURSE ---
Nausea: Pt is experiencing persistent nausea w/ no vomiting. Dr. Christy notified. New order for 25mg PO Phenergan ONCE NOW.
[2022-10-28] MEDS: promethazine 25 mg Tablet PO (01:50)
[2022-10-28] MEDS: dextrose 5%-ns + KCl 40 40 MEQ/1,000 ML BAG 200 MEQ IV ×5 (02:00→22:02)
[2022-10-28 02:02] LABS: Glucose Point of Care 218 mg/dL (70-110)
[2022-10-28 03:06] LABS: Glucose Point of Care 262 mg/dL (70-110)
[2022-10-28] MEDS: piperacillin-tazobactam 3.375 GM in sodium chloride 0.9% (plus) 50 ML IV ×3 (03:45→19:53)
[2022-10-28 04:15] LABS: Glucose Point of Care 236 mg/dL (70-110)
[2022-10-28 04:26] LABS: Basophils % 0.1 %; Hemoglobin 14.7 g/dL (11.7-16.6); Lymphocytes # 1.3 10^3/uL (0.8-4.8); Mean Corpuscular HGB Conc 33.4 g/dL (30.0-36.0); Mean Corpuscular Hemoglobin 31.7 pg (28.0-34.0); Mean Corpuscular Volume 94.8 fl (80-94); Mean Platelet Volume 9.3 fL (7.4-10.4); Monocytes # 2.6 10^3/uL (0.2-0.9); Neutrophils % 77.1 %; Nucleated Red Blood Cells % 0 %; Platelet Count 297 10^3/cmm (130-400); Red Blood Count 4.64 10^6/uL (4.1-5.3); Red Cell Distribution Width 13.2 % (12.1-15.1); White Blood Count 18.5 10^3/uL (4.0-10.0)
[2022-10-28 04:43] LABS: Anion Gap 25.7 (5-19); Blood Urea Nitrogen 18 mg/dL (8-23); C Reactive Protein 15.8 mg/L (0.0-4.9); Calcium 8.4 mg/dL (8.5-10.5); Carbon Dioxide 11 mmol/L (22-29); Chloride 108 mmol/L (98-107); Glomerular Filtration Rate 50.7 mL/min (90-130); Glucose 259 mg/dL (65-115); Magnesium 2.2 mg/dL (1.7-2.3); Osmolality Calculated 301 mOsm/kg (285-295); Potassium 4.7 mmol/L (3.5-5.1); Sodium 140 mmol/L (136-145)
[2022-10-28 04:49] LABS: Procalcitonin 0.49 ng/mL (0-0.5)
[2022-10-28] MEDS: enoxaparin 100 mg/mL Syringe 90 MG SUBCUT ×2 (05:04→17:23)
[2022-10-28 05:16] LABS: Glucose Point of Care 214 mg/dL (70-110)
[2022-10-28] MEDS: ondansetron 2 mg/ML SDV 2 mL 4 MG IVP (05:54)
[2022-10-28 06:03] LABS: Glucose Point of Care 202 mg/dL (70-110)
--- NOTE | 2022-10-28 07:14 | PC.NURSE ---
Per protocol insulin should be decreased, but due to other labs and glucose level, called Dr. Juarez, and all medications are to continue to run as they are currently, see MAR.
[2022-10-28] MEDS: sodium bicarbonate 150 MEQ in dextrose 5% 1,000 ML IV ×2 (08:21→15:58)
[2022-10-28 09:05] LABS: Glucose Point of Care 200 mg/dL (70-110)
[2022-10-28 10:18] LABS: Glucose Point of Care 200 mg/dL (70-110)
[2022-10-28 11:02] LABS: Glucose Point of Care 222 mg/dL (70-110)
[2022-10-28 11:50] LABS: Blood Urea Nitrogen 13 mg/dL (8-23); Calcium 8.2 mg/dL (8.5-10.5); Carbon Dioxide 15 mmol/L (22-29); Chloride 111 mmol/L (98-107); Glomerular Filtration Rate 60.6 mL/min (90-130); Glucose 247 mg/dL (65-115); Osmolality Calculated 304 mOsm/kg (285-295); Sodium 143 mmol/L (136-145)
[2022-10-28 12:06] LABS: Glucose Point of Care 234 mg/dL (70-110)
[2022-10-28 12:07] LABS: Anion Gap 21.4 (5-19); Potassium 4.4 mmol/L (3.5-5.1)
--- NOTE | 2022-10-28 12:12 | P.PN_ITS ---
Subjective Subjective: Blood sugar around 190 this morning I have continued bicarb drip along with D5 IV fluids Repeat ABG showing improvement in bicarb anion gap is 21 This morning urine gap is 25 Patient is endorsing feeling slightly better No active emesis Hemodynamic stable Low-grade fever A-fib without RVR Vitals/I&O/Wt Last Vital Signs Temp 100.1 F H 10/28/22 11:02 Pulse 98 10/28/22 10:15 Resp 18 10/28/22 10:15 BP 130/73 10/28/22 10:15 Pulse Ox 97 10/28/22 10:15 O2 Del Method Room Air 10/28/22 08:12 O2 Flow Rate 4 10/27/22 14:06 10/27/22 10/28/22 10/28/22 22:59 06:59 14:59 Intake Total 2841.433 / 3440.833 2500.165 / 5940.998 1065.096 / 1065.096 Output Total 1000 / 1000 2500 / 3500 1150 / 1150 Balance 1841.433 / 2440.833 0.165 / 2440.998 -84.904 / -84.904 Weight last 48 hrs Weight 94.801 kg Weight 127.006 kg Physical Exam Narrative: Clinically dehydrated A-fib without RVR GCS 15 Nonfocal neuro exam S1, S2 variable Abdomen soft Nicole cath in place Nonfocal neuro exam Fatigued and lethargic Urinary Catheter Management: Nicole: Cath Placed During This Visit: yes Reason for Continuing Indwelling Catheter: Accurate Measurement of Urinary Output in Critically Ill Patients Urinary Catheter Date of Insertion: 10/27/22 Urinary Catheter Time of Insertion: 16:15 Data 10/28/22 03:38 10/28/22 11:13 Micro: Microbiology 10/27/22 12:59 Blood Culture - Preliminary Blood SPECIMEN COLLECTED 10/27/22 13:14 Blood Culture - Preliminary Blood SPECIMEN COLLECTED A&P Assessment and plan (1) Metabolic acidosis: (2) DKA (diabetic ketoacidosis): (3) Atrial fibrillation with RVR: (4) Hypertension: Qualifiers: Hypertension type: primary hypertension Qualified Code(s): I10 - E ssential (primary) hypertension (5) Hyperlipidemia: Qualifiers: Hyperlipidemia type: pure hypercholesterolemia Qualified Code(s): E78.00 - Pure hypercholesterolemia, unspecified (6) DM type 2 (diabetes mellitus, type 2): Plan DKA Anion gap almost closed Metabolic acidosis: Continue bicarb drip Low-grade fever, continue empirical antibiotics A-fib without RVR Add anticoagulating agent, rate control medication on board Start consistent carb diet once gap is closed Stop bicarb drip once bicarb is around 19 Full code DVT prophylaxis covered Attestations Medical Necessity Statement*: Continue ICU management Diagnoses Metabolic acidosis E87.20 DKA (diabetic ketoacidosis) E11.10 Atrial fibrillation with RVR I48.91 Hypertension I10 Hypertension type: primary hypertension Hyperlipidemia E78.00 Hyperlipidemia type: pure hypercholesterolemia DM type 2 (diabetes mellitus, type 2) E11.9
[2022-10-28 13:20] LABS: Glucose Point of Care 231 mg/dL (70-110)
[2022-10-28 14:07] LABS: Glucose Point of Care 231 mg/dL (70-110)
[2022-10-28 15:05] LABS: Glucose Point of Care 249 mg/dL (70-110)
[2022-10-28 15:24] LABS: Glucose Point of Care 188 mg/dL (70-110)
[2022-10-28 15:24] LABS: Glucose Point of Care 195 mg/dL (70-110)
[2022-10-28 16:05] LABS: Glucose Point of Care 263 mg/dL (70-110)
[2022-10-28 17:06] LABS: Glucose Point of Care 283 mg/dL (70-110)
[2022-10-28 17:16] LABS: Blood Urea Nitrogen 9 mg/dL (8-23); Carbon Dioxide 14 mmol/L (22-29); Chloride 110 mmol/L (98-107); Glomerular Filtration Rate 74.8 mL/min (90-130); Glucose 258 mg/dL (65-115); Osmolality Calculated 300 mOsm/kg (285-295); Sodium 141 mmol/L (136-145)
[2022-10-28 17:32] LABS: Anion Gap 21.6 (5-19); Potassium 4.6 mmol/L (3.5-5.1)
[2022-10-28 18:08] LABS: Glucose Point of Care 223 mg/dL (70-110)
[2022-10-28 19:15] LABS: Glucose Point of Care 215 mg/dL (70-110)
[2022-10-28 20:05] LABS: Glucose Point of Care 220 mg/dL (70-110)
[2022-10-28 20:30] LABS: Anion Gap 16.8 (5-19); Blood Urea Nitrogen 8 mg/dL (8-23); Carbon Dioxide 20 mmol/L (22-29); Chloride 110 mmol/L (98-107); Glomerular Filtration Rate 84.4 mL/min (90-130); Glucose 235 mg/dL (65-115); Osmolality Calculated 302 mOsm/kg (285-295); Potassium 3.8 mmol/L (3.5-5.1); Sodium 143 mmol/L (136-145)
[2022-10-28 21:06] LABS: Glucose Point of Care 187 mg/dL (70-110)
[2022-10-28 22:08] LABS: Glucose Point of Care 266 mg/dL (70-110)
[2022-10-28 22:19] LABS: Magnesium 2.1 mg/dL (1.7-2.3)
[2022-10-28 22:24] LABS: Phosphorus 0.7 mg/dL (2.5-4.5)
[2022-10-28] MEDS: acetaminophen 325 mg Tablet 650 MG PO (22:26)
[2022-10-29] VITALS (61 sets, daily range): BP systolic 97–138; BP diastolic 67–94; PULSE 78–101; RESP 13–28; TEMP 37.2–37.6; O2SAT 94–99
[2022-10-29 00:16] LABS: Glucose Point of Care 186 mg/dL (70-110)
[2022-10-29 01:11] LABS: Glucose Point of Care 187 mg/dL (70-110)
[2022-10-29] MEDS: dilTIAZem 30 mg Tablet PO ×3 (01:30→12:58)
[2022-10-29 01:48] LABS: Anion Gap 13.9 (5-19); Blood Urea Nitrogen 6 mg/dL (8-23); Calcium 7.7 mg/dL (8.5-10.5); Carbon Dioxide 24 mmol/L (22-29); Chloride 112 mmol/L (98-107); Glomerular Filtration Rate 74.8 mL/min (90-130); Glucose 203 mg/dL (65-115); Magnesium 2.1 mg/dL (1.7-2.3); Osmolality Calculated 305 mOsm/kg (285-295); Phosphorus 1.2 mg/dL (2.5-4.5); Potassium 3.9 mmol/L (3.5-5.1); Sodium 146 mmol/L (136-145)
[2022-10-29 02:06] LABS: Glucose Point of Care 169 mg/dL (70-110)
[2022-10-29 02:07] LABS: Glucose Point of Care 200 mg/dL (70-110)
[2022-10-29] MEDS: insulin glargine 100 units/1 mL 24 UNIT SUBCUT (02:38)
[2022-10-29] MEDS: dextrose 5%-ns + KCl 40 40 MEQ/1,000 ML BAG 200 MEQ IV (03:20)
[2022-10-29 04:25] LABS: Basophils % 0.2 %; Eosinophils % 0.3 %; Hematocrit 38.2 % (42.0-52.0); Hemoglobin 12.8 g/dL (11.7-16.6); Lymphocytes # 1.8 10^3/uL (0.8-4.8); Lymphocytes % 16.9 %; Mean Corpuscular HGB Conc 33.5 g/dL (30.0-36.0); Mean Corpuscular Hemoglobin 30.9 pg (28.0-34.0); Mean Corpuscular Volume 92.3 fl (80-94); Mean Platelet Volume 9.2 fL (7.4-10.4); Monocytes # 1.7 10^3/uL (0.2-0.9); Monocytes % 15.7 %; Neutrophils # 6.99 10^3/uL (1.8-7.7); Neutrophils % 66.5 %; Nucleated Red Blood Cells % 0 %; Platelet Count 232 10^3/cmm (130-400); Red Blood Count 4.14 10^6/uL (4.1-5.3); Red Cell Distribution Width 13.8 % (12.1-15.1); White Blood Count 10.5 10^3/uL (4.0-10.0)
[2022-10-29 04:37] LABS: Anion Gap 14.9 (5-19); Blood Urea Nitrogen 5 mg/dL (8-23); Calcium 7.5 mg/dL (8.5-10.5); Carbon Dioxide 22 mmol/L (22-29); Chloride 112 mmol/L (98-107); Glomerular Filtration Rate 84.4 mL/min (90-130); Glucose 243 mg/dL (65-115); Osmolality Calculated 305 mOsm/kg (285-295); Potassium 3.9 mmol/L (3.5-5.1); Sodium 145 mmol/L (136-145)
[2022-10-29] MEDS: piperacillin-tazobactam 3.375 GM in sodium chloride 0.9% (plus) 50 ML IV ×2 (04:50→12:58)
[2022-10-29] MEDS: enoxaparin 100 mg/mL Syringe 90 MG SUBCUT (04:51)
[2022-10-29 07:13] LABS: Glucose Point of Care 224 mg/dL (70-110)
[2022-10-29] MEDS: insulin lispro 100 unit/1 mL SUBCUT ×2 (07:57→12:56)
--- NOTE | 2022-10-29 10:46 | PM.DCS ---
Discharge Providers Date of Admission: 10/27/22 15:40 Date of Discharge: October 29, 2022 Attending Provider at Admission: Joseph Juarez MD Attending Provider at Discharge: Joseph Juaerz MD Primary Care Provider: Yasir Argueta MD Diagnoses at Discharge Discharge Diagnosis (1) Metabolic acidosis: Status: Acute (2) DKA (diabetic ketoacidosis): Status: Acute (3) Atrial fibrillation with RVR: Status: Acute (4) Hypertension: Status: Acute Qualifiers: Hypertension type: primary hypertension Qualified Code(s): I10 - Essential (primary) hypertension (5) Hyperlipidemia: Status: Acute Qualifiers: Hyperlipidemia type: pure hypercholesterolemia Qualified Code(s): E78.00 - Pure hypercholesterolemia, unspecified (6) DM type 2 (diabetes mellitus, type 2): Status: Acute Reason for Visit Reason for Visit: n/v low blood sugar Hospital Course Hospital Course 67-year-old male who was admitted to the hospital for management of DKA, A-fib RVR extreme dehydration and metabolic acidosis, took 48 hours for him to correct his anion gap with IV insulin, will discontinue IV bicarb drip and IV fluids once his anion gap closed, at home he takes 38 units of Lantus with sliding scale and oral antihyperglycemic agents and Trulicity, I have given him referral to see Dr. Dixon, I have increased the dose of metoprolol, he was not taking any anticoagulating agent for his [id number], Hasbled score 2 I have started him on Eliquis Nausea vomiting is improved, patient is able to tolerate diet Patient is stating that he has enough supply of insulin at home he just missed 2 days because he was not feeling well, hemoglobin A1c is 8.9 , Low-grade fever was noted, there is no active source of infection, Physical Exam Narrative: Awake and alert GCS 15 Tolerating diet S1, S2 Nonfocal neuro exam Pleasant & cooperative Urinary Catheter Management: Nicole: Cath Placed During This Visit: yes Reason for Continuing Indwelling Catheter: Accurate Measurement of Urinary Output in Critically Ill Patients Urinary Catheter Date of Insertion: 10/27/22 Urinary Catheter Time of Insertion: 16:15 Discharge Data Studies Completed and Pending Completed Studies During Hospitalization Category Date Time Status CT abdomen pelvis wo con [id number] Stat Cat Scan 10/27/22 13:26 Completed XR chest 1V portable [id number] Stat Exams 10/27/22 12:48 Completed Pending at discharge Category Date Time Status Blood Culture Stat Lab 10/27/22 13:14 Results Gastricult Occult BLD Stat Lab 10/27/22 12:54 Ordered Radiology Impressions Chest X-Ray 10/27/22 12:48 IMPRESSION: No acute findings. Abdomen/Pelvis CT 10/27/22 13:26 IMPRESSION: 1. Quality of this examination is significantly compromised by breathing motion artifact. 2. Small foci of free air or ischemic changes would easily be obscured. 3. No ascites identified. 4. Prior cholecystectomy. Laboratory Results WBC 10.5 10^3/uL (4.0-10.0) H 10/29/22 04:10 RBC 4.14 10^6/uL (4.1-5.3) 10/29/22 04:10 Hgb 12.8 g/dL (11.7-16.6) 10/29/22 04:10 Hct 38.2 % (42.0-52.0) L 10/29/22 04:10 MCV 92.3 fl (80-94) 10/29/22 04:10 MCH 30.9 pg (28.0-34.0) 10/29/22 04:10 MCHC 33.5 g/dL (30.0-36.0) 10/29/22 04:10 RDW 13.8 % (12.1-15.1) 10/29/22 04:10 Plt Count 232 10^3/cmm (130-400) 10/29/22 04:10 MPV 9.2 fL (7.4-10.4) 10/29/22 04:10 Neut % (Auto) 66.5 % 10/29/22 04:10 Lymph % (Auto) 16.9 % 10/29/22 04:10 [place] % (Auto) 15.7 % 10/29/22 04:10 Eos % (Auto) 0.3 % 10/29/22 04:10 Baso % (Auto) 0.2 % 10/29/22 04:10 Neut # (Auto) 6.99 10^3/uL (1.8-7.7) 10/29/22 04:10 Lymph # (Auto) 1.8 10^3/uL (0.8-4.8) 10/29/22 04:10 [place] # (Auto) 1.7 10^3/uL (0.2-0.9) H 10/29/22 04:10 Eos # (Auto) 0.0 10^3/uL (0.0-0.8) 10/29/22 04:10 Baso # (Auto) 0.0 10^3/uL (0.0-0.1) 10/29/22 04:10 Nucleated RBC % (auto) 0 % 10/29/22 04:10 Nucleated RBCs # 0.0 /100WBC 10/29/22 04:10 PT 15.20 SECONDS (12.1-14.9) H 10/27/22 12:59 INR 1.16 (0.8-1.2) 10/27/22 12:59 APTT 27.0 SECONDS (23.9-36.7) 10/27/22 12:59 D-Dimer 0.97 ug/mIFEU (0-0.59) H 10/27/22 15:03 Specimen Type Arterial 10/27/22 12:51 Sample Site Radial, right 10/27/22 12:51 ABG pH 6.96 (7.35-7.45) L* 10/27/22 12:51 ABG pCO2 7.5 mmHg (35-45) L* 10/27/22 12:51 ABG pO2 131.0 mmHg (80.0-100.0) H 10/27/22 12:51 ABG HCO3 1.7 mmol/L (22-26) L 10/27/22 12:51 ABG O2 Saturation 98.9 10/27/22 12:51 ABG Base Excess -28.1 mmol/L (-2.0-2.0) L 10/27/22 12:51 [place] Test Pos 10/27/22 12:51 A-a O2 Gradient 0.7 mmHg (5-10) L 10/27/22 12:51 Hematocrit 57.6 % (42-52) H 10/27/22 12:51 Hgb O2 Saturation 97.5 % (95-100) 10/27/22 12:51 Carboxyhemoglobin 1.0 %THgb (0.4-20.1) 10/27/22 12:51 Methemoglobin 0.4 % (0.4-1.5) 10/27/22 12:51 Total Hemoglobin 18.8 g/dL (14-18) H 10/27/22 12:51 Sodium 141.0 mmol/L (131-143) 10/27/22 12:51 Potassium 5.3 mmol/L (3.5-5.0) H 10/27/22 12:51 Glucose 550.0 mg/dL (70-115) H 10/27/22 12:51 Ionized Calcium 1.3 mmol/L (1.1-1.4) 10/27/22 12:51 O2 Delivery Device Room air 10/27/22 12:51 FiO2 21.0 % 10/27/22 12:51 Community Outreach Specialist ID [place] 10/27/22 12:51 Sodium 145 mmol/L (136-145) 10/29/22 04:10 Potassium 3.9 mmol/L (3.5-5.1) 10/29/22 04:10 Chloride 112 mmol/L (98-107) H 10/29/22 04:10 Carbon Dioxide 22 mmol/L (22-29) 10/29/22 04:10 Anion Gap 14.9 (5-19) 10/29/22 04:10 BUN 5 mg/dL (8-23) L 10/29/22 04:10 Creatinine 0.9 mg/dL (0.7-1.2) 10/29/22 04:10 GFR Calculation 84.4 mL/min (90-130) L 10/29/22 04:10 Glucose 243 mg/dL (65-115) H 10/29/22 04:10 POC Glucose 224 mg/dL (70-110) H 10/29/22 07:08 Estimat Average Glucose 209 10/27/22 12:59 Hemoglobin A1c 8.9 % (4.0-6.0) H 10/27/22 12:59 Calculated Osmolality 305 mOsm/kg (285-295) H 10/29/22 04:10 Lactic Acid 5.1 mmol/L (0.5-2.2) H* 10/27/22 12:59 Lactic Acid (Sepsis) Cancelled 10/27/22 16:28 Lactate 3.1 mmol/L (0.5-2.2) H 10/27/22 17:10 Calcium 7.5 mg/dL (8.5-10.5) L 10/29/22 04:10 Phosphorus 1.2 mg/dL (2.5-4.5) L D 10/29/22 00:48 Magnesium 2.1 mg/dL (1.7-2.3) 10/29/22 00:48 Total Bilirubin 0.2 mg/dL (0.15-1.2) 10/27/22 12:59 AST 9 U/L (0-40) 10/27/22 12:59 ALT 9 U/L (0-41) 10/27/22 12:59 Alkaline Phosphatase 86 U/L (40-130) 10/27/22 12:59 Troponin T Baseline 16 ng/L (0-15) H 10/27/22 12:59 Troponin T 120 Minute 18.66 ng/L (0-15) H 10/27/22 17:10 Delta Troponin T 2.66 ABS# (0-10) 10/27/22 17:10 Troponin T Hi Sens 6Hr 25.74 ng/L (0-15) H 10/27/22 19:20 Troponin T Hi Sens 6Hr Delta 9.74 ng/L (0-12) 10/27/22 19:20 C-Reactive Protein 15.8 mg/L (0.0-4.9) H 10/28/22 03:38 Total Protein 8.2 g/dL (6.6-8.7) 10/27/22 12:59 Albumin 5.1 g/dL (3.5-5.2) 10/27/22 12:59 Globulin 3.1 g/dL (1.3-4.6) 10/27/22 12:59 Triglycerides 151 mg/dL (0-150) H 10/27/22 12:59 Vitamin B12 699 pg/mL (232-1245) 10/27/22 12:59 Procalcitonin 0.49 ng/mL (0-0.5) 10/28/22 03:38 TSH 1.83 uIU/mL (0.27-4.20) 10/27/22 12:59 Urine Color Straw (Yellow) 10/27/22 13:58 Urine Appearance Clear (CLEAR) 10/27/22 13:58 Urine pH 5 (5-7) 10/27/22 13:58 Ur Specific [place] 1.020 (1.005-1.030) 10/27/22 13:58 Urine Protein 1+ (Negative) H 10/27/22 13:58 Urine Glucose (UA) 4+ (Normal) H 10/27/22 13:58 Urine Ketones 3+ (Negative) H 10/27/22 13:58 Urine Blood 2+ (Negative) H 10/27/22 13:58 Urine Nitrate Negative (Negative) 10/27/22 13:58 Urine Bilirubin Neg (Negative) 10/27/22 13:58 Urine Urobilinogen Norm mg/dL (Negative) 10/27/22 13:58 Ur Leukocyte Esterase Negative (Negative) 10/27/22 13:58 Urine RBC 5-10 /hpf (0-2) H 10/27/22 13:58 Urine WBC 0-4 /hpf (0-5) H 10/27/22 13:58 Ur Squamous Epith Cells 0-4 /hpf (0-5) H 10/27/22 13:58 Amorphous Sediment Not Reportable 10/27/22 13:58 Urine Bacteria Trace /hpf (NONE) 10/27/22 13:58 Fine Granular Casts 0-4 /lpf H 10/27/22 13:58 Serum Ketones Positive (Negative) H 10/27/22 12:59 Vitals Last Vital Signs Temp 99.7 F H 10/29/22 04:00 Pulse 85 10/29/22 10:00 Resp 17 10/29/22 09:40 BP 123/78 10/29/22 08:00 Pulse Ox 95 10/29/22 09:40 O2 Del Method Room Air 10/29/22 09:40 O2 Flow Rate 4 10/27/22 14:06 Discharge Plan Discharge Patient Disposition: Home Condition: Stable Prescriptions: New Eliquis 5 mg tablet 5 mg PO BID Qty: 120 3RF insulin lispro [Humalog KwikPen Insulin] 100 unit/mL insulin pen 1 unit SUBCUT QAM Qty: 15 5RF Rx Instructions: moderate dose sliding scale, max 16U /day Continued cholecalciferol (vitamin D3) 125 mcg (5,000 unit) tablet 125 mcg PO QAM (DME) insulin syringe-needle U-100 [Sure Comfort Insulin Syringe] 0.3 mL 30 gauge x 5/16 syringe See Rx Instructions .Route Qty: 100 0RF Rx Instructions: WHAT THE GOV WILL SUPPLY (DME) pen needle, diabetic [Comfort EZ Pen [place]] 29 gauge x 1/2 needle See Rx Instructions .Route Qty: 100 3RF Rx Instructions: SURE COMFORT OR WHATEVER IS AVAILABLE PER INS (DME) lancets [Easy Touch Safety Lancets] 28 gauge misc See Rx Instructions .Route Qty: 100 3RF Rx Instructions: ANY BRAND COVERED BY INSURANCE- 4 sticks daily Glucose Bits 1 gram Tablet,Chewable See Rx Instructions .ROUTE .COMPLEX Rx Instructions: use as directed as needed (DME) FreeStyle Lancets 28 gauge misc MISCELLANEOUS aspirin 325 mg tablet 325 mg PO QAM gabapentin 300 mg capsule 300 mg PO BEDTIME Trulicity 1.5 mg/0.5 mL pen injector 1.5 mg SUBCUT Q7D Rx Instructions: on tue atorvastatin 10 mg tablet 10 mg PO BEDTIME metformin 1,000 mg tablet 1,000 mg PO BID@0900,1800 Qty: 180 3RF Rx Instructions: take with meals Jardiance 25 mg tablet 25 mg PO QAM Qty: 30 0RF Changed metoprolol tartrate 25 mg tablet 50 mg PO BID Qty: 60 3RF Lantus Solostar U-100 Insulin 100 unit/mL (3 mL) insulin pen 38 unit SUBCUT QAM Qty: 15 0RF Discharge Orders: Discharge Order (Routine); Ordered 10/29/22 Ordered By: Joseph Juarez Referrals: Yasir Argueta MD [Primary Care Provider] - Carlos Dixon MD [Physician] - 4-7 days Discharge Diet: Diabetic Discharge Activity: Increase activity as tolerated Patient Instructions: Opioid Safety Discharge Attestations Time Spent in Discharge Care*: greater than 30 min Status at Discharge: Cognitive status at discharge: cognitively intact, Behavioral status at discharge: cooperative, Quality Metrics Clinical Quality Measures [ No reported AMI, CVA or VTE this stay] Coding Level of Care Code Acute Code for Chg Fwd Diagnoses Metabolic acidosis E87.20 DKA (diabetic ketoacidosis) E11.10 Atrial fibrillation with RVR I48.91 Hypertension I10 Hypertension type: primary hypertension Hyperlipidemia E78.00 Hyperlipidemia type: pure hypercholesterolemia DM type 2 (diabetes mellitus, type 2) E11.9
[2022-10-29 12:45] LABS: Glucose Point of Care 316 mg/dL (70-110)
--- NOTE | 2022-10-29 13:17 | PC.NURSE ---
PCP clinic closed prior to patients discharge orders, this nurse will instruct patient to make follow up appointment with PCP
--- NOTE | 2022-10-29 14:21 | PC.NURSE ---
Patient received discharge instructions, this nurse went over all information with patient and spouse, all new meds were processed meds to beds and went over with patient. All IV's removed. Patient verbalized understanding of all new medications and prescriptions. All patient belongings sent home with patient.
--- NOTE | 2022-10-29 14:39 | PC.NURSE ---
Patient exited to main exit via w/c with staff at 1439.
[2022-10-29 18:41] LABS: Glucose Point of Care 182 mg/dL (70-110)
== END 2022-10-29 14:39 | disposition home or self-care (01) | DRG 639 ==
LOC: ER 14:31 → ICU 15:41
PROVIDERS: Admitting Provider Internal Medicine; Emergency Provider Emergency Medicine; PCP Internal Medicine; Visit Provider Internal Medicine
DX: E11.10 Type 2 diabetes mellitus with ketoacidosis without coma (principal); I48.91 Unspecified atrial fibrillation; I10 Essential (primary) hypertension; E78.00 Pure hypercholesterolemia, unspecified; E86.0 Dehydration; T38.3X6A Underdosing of insulin and oral hypoglycemic [antidiabetic] drugs, initial encounter; Z91.128 Patient's intentional underdosing of medication regimen for other reason; Z79.84 Long term (current) use of oral hypoglycemic drugs; Z79.4 Long term (current) use of insulin; Z79.85 Long-term (current) use of injectable non-insulin antidiabetic drugs; I25.2 Old myocardial infarction; Z87.01 Personal history of pneumonia (recurrent); Z86.16 Personal history of COVID-19; Z87.440 Personal history of urinary (tract) infections; Z87.891 Personal history of nicotine dependence
CPT/HCPCS: 36415; 36416; 36600; 51702; 71045; 74176; 80048; 80051; 80053; 81001; 82009; 82330; 82607; 82805; 82962; 83036; 83605; 83735; 84100; 84145; 84443; 84478; 84484; 85025; 85378; 85610; 85730; 86140; 87040; 93005; 96365; 96366; 96367; 96372; 96375; 97116; 97161; 99285; C9113; J1650; J1815; J2405; J2543; J3490; J7030; J7050; J7070; Q0169

== ENCOUNTER → 2022-11-05 08:44 | Outpatient (BNVA) | payer MEDICARE, OTHER, SELFPAY | PROVIDERS: PCP Internal Medicine; Visit Provider Internal Medicine | DX: E11.9 Type 2 diabetes mellitus without complications (principal); E78.5 Hyperlipidemia, unspecified; I10 Essential (primary) hypertension; E78.00 Pure hypercholesterolemia, unspecified; I48.91 Unspecified atrial fibrillation; Z79.4 Long term (current) use of insulin; Z79.84 Long term (current) use of oral hypoglycemic drugs | CPT/HCPCS: 99204 ==

== ENCOUNTER 2022-12-30 08:46 | Outpatient (CLI) | payer MEDICARE, OTHER, SELFPAY ==
[2022-12-30 09:31] LABS: Estmated Average Glucose 260; Hemoglobin A1C 10.7 % (4.0-6.0)
[2022-12-30 09:33] LABS: Alanine Aminotransferase 12 U/L (0-41); Alkaline Phosphatase 74 U/L (40-130); Anion Gap 13.7 (5-19); Aspartate Amino Transferase 13 U/L (0-40); Blood Urea Nitrogen 12 mg/dL (8-23); Calcium 8.9 mg/dL (8.5-10.5); Carbon Dioxide 28 mmol/L (22-29); Chloride 100 mmol/L (98-107); Chol HDL Ratio 1.86 mg/dL (1.0-5.00); Cholesterol 91 mg/dL (0-200); Globulin 2.9 g/dL (1.3-4.6); Glomerular Filtration Rate 112.8 mL/min (90-130); Glucose 189 mg/dL (65-115); HDL Cholesterol 49 mg/dL (60-100); LDL Cholesterol Calculated 25 mg/dL (50-129); LDL HDL Ratio 0.51 RATIO (0.00-3.22); Osmolality Calculated 291 mOsm/kg (285-295); Potassium 3.7 mmol/L (3.5-5.1); Sodium 138 mmol/L (136-145); Total Bilirubin 0.4 mg/dL (0.15-1.2); Total Protein 6.9 g/dL (6.6-8.7); Triglycerides 87 mg/dL (0-150)
[2022-12-30 09:45] LABS: Creatinine Urine, Random 93 mg/dL (39-259); Microalbum Creatinine Ratio Ur 11 mg/dL (0-20); Microalbumin Random Urine 1 ug/dL (0-20)
[2022-12-31 11:53] LABS: C-Peptide 0.11 ng/mL (0.80-3.85)
== END 2022-12-30 08:47 | disposition home or self-care (01) ==
PROVIDERS: Visit Provider Internal Medicine
DX: E11.9 Type 2 diabetes mellitus without complications (principal); E78.5 Hyperlipidemia, unspecified; I10 Essential (primary) hypertension
CPT/HCPCS: 36415; 80053; 80061; 82044; 83036; 84681

== ENCOUNTER → 2023-01-18 08:53 | Outpatient (BNVA) | payer MEDICARE, OTHER, SELFPAY | PROVIDERS: Visit Provider Internal Medicine | DX: I48.91 Unspecified atrial fibrillation; E10.9 Type 1 diabetes mellitus without complications; Z79.4 Long term (current) use of insulin; Z79.84 Long term (current) use of oral hypoglycemic drugs | CPT/HCPCS: 99214 ==

== ENCOUNTER 2023-03-25 08:50 | Outpatient (CLI) | payer MEDICARE, OTHER, SELFPAY ==
[2023-03-25 09:37] LABS: Estmated Average Glucose 289; Hemoglobin A1C 11.7 % (4.0-6.0)
[2023-03-25 09:40] LABS: Alanine Aminotransferase 11 U/L (0-41); Albumin Level 4.1 g/dL (3.5-5.2); Alkaline Phosphatase 84 U/L (40-130); Blood Urea Nitrogen 17 mg/dL (8-23); Calcium 9.7 mg/dL (8.5-10.5); Carbon Dioxide 25 mmol/L (22-29); Chloride 96 mmol/L (98-107); Chol HDL Ratio 2.19 mg/dL (1.0-5.00); Cholesterol 105 mg/dL (0-200); Globulin 3.3 g/dL (1.3-4.6); Glomerular Filtration Rate 96.4 mL/min (90-130); Glucose 287 mg/dL (65-115); HDL Cholesterol 48 mg/dL (60-100); LDL Cholesterol Calculated 31 mg/dL (50-129); LDL HDL Ratio 0.65 RATIO (0.00-3.22); Osmolality Calculated 288 mOsm/kg (285-295); Sodium 133 mmol/L (136-145); Total Bilirubin 0.5 mg/dL (0.15-1.2); Total Protein 7.4 g/dL (6.6-8.7); Triglycerides 131 mg/dL (0-150)
[2023-03-25 09:41] LABS: Creatinine Urine, Random 180 mg/dL (39-259); Microalbumin Random Urine 11 ug/dL (0-20)
[2023-03-25 09:44] LABS: Anion Gap 15.9 (5-19); Aspartate Amino Transferase 13 U/L (0-40); Potassium 3.9 mmol/L (3.5-5.1)
[2023-03-25 09:44] LABS: Microalbum Creatinine Ratio Ur 61 mg/dL (0-20)
== END 2023-03-25 08:51 | disposition home or self-care (01) ==
LOC: LAB 08:53
PROVIDERS: PCP Internal Medicine; Visit Provider Internal Medicine
DX: E11.9 Type 2 diabetes mellitus without complications (principal)
CPT/HCPCS: 36415; 80053; 80061; 82044; 83036

== ENCOUNTER → 2023-03-30 09:03 | Outpatient (BNVA) | payer MEDICARE, OTHER, SELFPAY | PROVIDERS: PCP Internal Medicine; Visit Provider Internal Medicine | DX: E11.9 Type 2 diabetes mellitus without complications (principal); I48.91 Unspecified atrial fibrillation; Z79.4 Long term (current) use of insulin; Z79.84 Long term (current) use of oral hypoglycemic drugs | CPT/HCPCS: 99215 ==

== ENCOUNTER → 2023-05-17 08:57 | Outpatient (BNVA) | payer MEDICARE, OTHER, SELFPAY | PROVIDERS: PCP Internal Medicine; Visit Provider Internal Medicine | DX: E10.9 Type 1 diabetes mellitus without complications; E78.00 Pure hypercholesterolemia, unspecified; I48.91 Unspecified atrial fibrillation; Z79.4 Long term (current) use of insulin; Z79.84 Long term (current) use of oral hypoglycemic drugs | CPT/HCPCS: 99214 ==

== ENCOUNTER 2023-08-12 09:25 | Outpatient (CLI) | payer MEDICARE, OTHER, SELFPAY ==
[2023-08-12 10:00] LABS: Alanine Aminotransferase 16 U/L (0-41); Albumin Level 3.9 g/dL (3.5-5.2); Alkaline Phosphatase 79 U/L (40-130); Aspartate Amino Transferase 16 U/L (0-40); Blood Urea Nitrogen 11 mg/dL (8-23); Calcium 8.3 mg/dL (8.5-10.5); Carbon Dioxide 25 mmol/L (22-29); Chloride 102 mmol/L (98-107); Chol HDL Ratio 2.35 mg/dL (1.0-5.00); Cholesterol 108 mg/dL (0-200); Globulin 3.1 g/dL (1.3-4.6); Glomerular Filtration Rate 112.5 mL/min (90-130); Glucose 216 mg/dL (65-115); HDL Cholesterol 46 mg/dL (60-100); LDL Cholesterol Calculated 38 mg/dL (50-129); LDL HDL Ratio 0.83 RATIO (0.00-3.22); Osmolality Calculated 288 mOsm/kg (285-295); Sodium 136 mmol/L (136-145); Total Bilirubin 0.5 mg/dL (0.15-1.2); Triglycerides 120 mg/dL (0-150)
[2023-08-12 10:02] LABS: Anion Gap 13.4 (5-19); Potassium 4.4 mmol/L (3.5-5.1)
[2023-08-12 10:09] LABS: Creatinine Urine, Random 217 mg/dL (39-259); Microalbum Creatinine Ratio Ur 5 mg/dL (0-20); Microalbumin Random Urine 1 ug/dL (0-20)
[2023-08-12 10:15] LABS: Estmated Average Glucose 212
== END 2023-08-12 09:26 | disposition home or self-care (01) ==
LOC: LAB 09:28
PROVIDERS: PCP Family Medicine; Visit Provider Internal Medicine
DX: E10.9 Type 1 diabetes mellitus without complications (principal); E78.00 Pure hypercholesterolemia, unspecified
CPT/HCPCS: 80053; 80061; 82044; 83036

== ENCOUNTER → 2023-08-24 09:01 | Outpatient (BNVA) | payer MEDICARE, OTHER, SELFPAY | PROVIDERS: PCP Family Medicine; Visit Provider Internal Medicine | DX: E11.9 Type 2 diabetes mellitus without complications (principal); E78.00 Pure hypercholesterolemia, unspecified; I48.91 Unspecified atrial fibrillation; Z79.4 Long term (current) use of insulin; Z79.84 Long term (current) use of oral hypoglycemic drugs | CPT/HCPCS: 99214 ==

== ENCOUNTER 2024-02-17 08:41 | Outpatient (CLI) | payer MEDICARE, OTHER, SELFPAY ==
[2024-02-17 09:33] LABS: Creatinine Urine, Random 203 mg/dL (39-259); Microalbum Creatinine Ratio Ur 5 mg/dL (0-20); Microalbumin Random Urine 1 ug/dL (0-20)
[2024-02-17 09:38] LABS: Alanine Aminotransferase 13 U/L (0-41); Albumin Level 3.8 g/dL (3.5-5.2); Alkaline Phosphatase 82 U/L (40-130); Anion Gap 13.4 (5-19); Aspartate Amino Transferase 13 U/L (0-40); Blood Urea Nitrogen 14 mg/dL (8-23); Calcium 8.9 mg/dL (8.5-10.5); Carbon Dioxide 28 mmol/L (22-29); Chloride 102 mmol/L (98-107); Chol HDL Ratio 2.47 mg/dL (1.0-5.00); Cholesterol 106 mg/dL (0-200); Estmated Average Glucose 235; Glomerular Filtration Rate 112.1 mL/min (90-130); Glucose 236 mg/dL (65-115); HDL Cholesterol 43 mg/dL (60-100); Hemoglobin A1C 9.8 % (4.0-6.0); LDL Cholesterol Calculated 34 mg/dL (50-129); LDL HDL Ratio 0.79 RATIO (0.00-3.22); Osmolality Calculated 296 mOsm/kg (285-295); Potassium 4.4 mmol/L (3.5-5.1); Sodium 139 mmol/L (136-145); Total Bilirubin 0.5 mg/dL (0.15-1.2); Total Protein 6.8 g/dL (6.6-8.7); Triglycerides 143 mg/dL (0-150)
== END 2024-02-17 08:42 | disposition home or self-care (01) ==
LOC: LAB 08:41
PROVIDERS: PCP Family Medicine; Visit Provider Internal Medicine
DX: E10.9 Type 1 diabetes mellitus without complications (principal); E78.00 Pure hypercholesterolemia, unspecified
CPT/HCPCS: 36415; 80053; 80061; 82044; 83036

== ENCOUNTER → 2024-02-27 08:43 | Outpatient (BNVA) | payer MEDICARE, OTHER, SELFPAY | PROVIDERS: PCP Family Medicine; Visit Provider Internal Medicine | DX: E11.9 Type 2 diabetes mellitus without complications (principal); E78.00 Pure hypercholesterolemia, unspecified; I48.91 Unspecified atrial fibrillation; Z79.4 Long term (current) use of insulin; Z79.84 Long term (current) use of oral hypoglycemic drugs | CPT/HCPCS: 99214 ==

== ENCOUNTER 2024-05-18 09:29 | Outpatient (CLI) | payer OTHER, MEDICARE, SELFPAY ==
[2024-05-18 10:20] LABS: Alanine Aminotransferase 20 U/L (0-41); Albumin Level 3.9 g/dL (3.5-5.2); Alkaline Phosphatase 97 U/L (40-130); Anion Gap 17.9 (5-19); Aspartate Amino Transferase 17 U/L (0-40); Blood Urea Nitrogen 13 mg/dL (8-23); Calcium 8.8 mg/dL (8.5-10.5); Carbon Dioxide 24 mmol/L (22-29); Chloride 95 mmol/L (98-107); Chol HDL Ratio 2.71 mg/dL (1.0-5.00); Cholesterol 111 mg/dL (0-200); Globulin 3.3 g/dL (1.3-4.6); Glomerular Filtration Rate 96.1 mL/min (90-130); Glucose 291 mg/dL (65-115); HDL Cholesterol 41 mg/dL (60-100); LDL Cholesterol Calculated 39 mg/dL (50-129); LDL HDL Ratio 0.95 RATIO (0.00-3.22); Osmolality Calculated 287 mOsm/kg (285-295); Potassium 3.9 mmol/L (3.5-5.1); Sodium 133 mmol/L (136-145); Total Bilirubin 0.6 mg/dL (0.15-1.2); Total Protein 7.2 g/dL (6.6-8.7); Triglycerides 153 mg/dL (0-150)
[2024-05-18 10:25] LABS: Estmated Average Glucose 235; Hemoglobin A1C 9.8 % (4.0-6.0)
[2024-05-18 10:32] LABS: Creatinine Urine, Random 201 mg/dL (39-259); Microalbum Creatinine Ratio Ur 10 mg/dL (0-20); Microalbumin Random Urine 2 ug/dL (0-20)
== END 2024-05-18 09:30 | disposition home or self-care (01) ==
LOC: LAB 09:38
PROVIDERS: PCP Family Medicine; Visit Provider Internal Medicine
DX: E10.9 Type 1 diabetes mellitus without complications (principal); E78.00 Pure hypercholesterolemia, unspecified
CPT/HCPCS: 36415; 80053; 80061; 82044; 83036

== ENCOUNTER → 2024-09-03 08:58 | Outpatient (BNVA) | payer MEDICARE, OTHER, SELFPAY | PROVIDERS: PCP Family Medicine; Visit Provider Internal Medicine | DX: E10.9 Type 1 diabetes mellitus without complications (principal); E78.00 Pure hypercholesterolemia, unspecified; I48.91 Unspecified atrial fibrillation | CPT/HCPCS: 99214 ==

== ENCOUNTER 2024-09-17 09:10 | Outpatient (CLI) | payer MEDICARE, OTHER, SELFPAY ==
[2024-09-17 10:07] LABS: Alanine Aminotransferase 21 U/L (0-41); Albumin Level 3.8 g/dL (3.5-5.2); Alkaline Phosphatase 93 U/L (40-130); Anion Gap 18.4 (5-19); Aspartate Amino Transferase 15 U/L (0-40); Blood Urea Nitrogen 10 mg/dL (8-23); Calcium 8.7 mg/dL (8.5-10.5); Carbon Dioxide 23 mmol/L (22-29); Chloride 101 mmol/L (98-107); Chol HDL Ratio 3.27 mg/dL (1.0-5.00); Cholesterol 134 mg/dL (0-200); Globulin 3.1 g/dL (1.3-4.6); Glomerular Filtration Rate 96.1 mL/min (90-130); Glucose 306 mg/dL (65-115); HDL Cholesterol 41 mg/dL (60-100); LDL Cholesterol Calculated 53 mg/dL (50-129); LDL HDL Ratio 1.29 RATIO (0.00-3.22); Osmolality Calculated 297 mOsm/kg (285-295); Potassium 4.4 mmol/L (3.5-5.1); Sodium 138 mmol/L (136-145); Total Bilirubin 0.5 mg/dL (0.15-1.2); Total Protein 6.9 g/dL (6.6-8.7); Triglycerides 199 mg/dL (0-150)
[2024-09-17 10:10] LABS: Creatinine Urine, Random 155 mg/dL (39-259); Microalbum Creatinine Ratio Ur 13 mg/dL (0-20); Microalbumin Random Urine 2 ug/dL (0-20)
[2024-09-17 10:53] LABS: Estmated Average Glucose 269
== END 2024-09-17 09:11 | disposition home or self-care (01) ==
PROVIDERS: PCP Family Medicine; Visit Provider Internal Medicine
DX: E10.9 Type 1 diabetes mellitus without complications (principal); E78.00 Pure hypercholesterolemia, unspecified; I48.91 Unspecified atrial fibrillation
CPT/HCPCS: 36415; 80053; 80061; 82044; 83036

== ENCOUNTER → 2024-11-29 10:33 | Outpatient (BNVA) | payer MEDICARE, OTHER, SELFPAY | PROVIDERS: PCP Family Medicine; Visit Provider Nurse Practitioner Family | DX: D22.61 Melanocytic nevi of right upper limb, including shoulder (principal); L81.4 Other melanin hyperpigmentation; Q83.3 Accessory nipple; L82.1 Other seborrheic keratosis | CPT/HCPCS: 99203 ==

== ENCOUNTER 2025-02-25 09:41 | Outpatient (CLI) | payer MEDICARE, OTHER, SELFPAY ==
[2025-02-25 10:39] LABS: Alanine Aminotransferase 20 U/L (0-41); Albumin Level 4.0 g/dL (3.5-5.2); Alkaline Phosphatase 93 U/L (40-130); Anion Gap 12.1 (5-19); Aspartate Amino Transferase 15 U/L (0-40); Blood Urea Nitrogen 10 mg/dL (8-23); Calcium 8.9 mg/dL (8.5-10.5); Carbon Dioxide 29 mmol/L (22-29); Chloride 102 mmol/L (98-107); Cholesterol 142 mg/dL (0-200); Globulin 2.9 g/dL (1.3-4.6); Glucose 210 mg/dL (65-115); HDL Cholesterol 42 mg/dL (60-100); Osmolality Calculated 293 mOsm/kg (285-295); Potassium 4.1 mmol/L (3.5-5.1); Sodium 139 mmol/L (136-145); Total Protein 6.9 g/dL (6.6-8.7); Triglycerides 196 mg/dL (0-150)
[2025-02-25 10:54] LABS: Creatinine Urine, Random 180 mg/dL (39-259); Microalbum Creatinine Ratio Ur 6 mg/dL (0-20)
[2025-02-25 11:25] LABS: Estmated Average Glucose 223; Hemoglobin A1C 9.4 % (4.0-6.0)
== END 2025-02-25 09:42 | disposition home or self-care (01) ==
LOC: LAB 09:42
PROVIDERS: PCP Family Medicine; Visit Provider Internal Medicine
DX: E10.9 Type 1 diabetes mellitus without complications (principal); E78.00 Pure hypercholesterolemia, unspecified; I48.91 Unspecified atrial fibrillation
CPT/HCPCS: 36415; 80053; 80061; 82044; 83036